=== PATIENT | female | born 1930 | race Caucasian/White ===

== ENCOUNTER 2018-09-23 08:53 | Emergency (ER) | payer MEDICARE, OTHER ==
--- OUTSIDE RECORDS SUMMARY | 2018-09-23 08:57 | XMS REPORT | Clinical Summary ---
:1930 Author Organization [facility] Address [address] [place] [address] Care Team Providers Name Role Phone Cesario Cabrera MD Primary Care Provider Allergies No Known Allergies Medications Medication Sig Dispensed Refills Start Date End Date Status metFORMIN Take 1,000 mg by 0 Active (GLUCOPHAGE) 1000 MG mouth 2 (two) times tablet daily with breakfast and dinner. docusate sodium Take 1 capsule (100 50 capsule 0 02/24/2017 Active (COLACE) 100 MG mg total) by mouth capsule 2 (two) times daily. traMADol (ULTRAM) 50 Take 2 tablets (100 30 tablet 0 02/24/2017 Active mg tablet mg total) by mouth every 6 (six) hours as needed for Pain. Max Daily Amount: 400 mg Active Problems Problem Noted Date Kidney stone 02/24/2017 Social History Tobacco Use Types Packs/Day Years Used Date Never Smoker Smokeless Tobacco: Never Used Alcohol Use Drinks/Week oz/Week Comments No Sex Assigned at Date Recorded Not on file Job Start Date Occupation Industry Not on file Not on file Not on file Travel History Travel Start Travel End No recent travel history available. Last Filed Vital Signs Not on file Plan of Treatment Not on file Results Not on fileafter 09/22/2017 Insurance Payer Benefit Plan / Group Subscriber ID Type Phone Address CARE IMPROVEMENT MEDICARE MGD CARE IMPROVEMENT PLUS xxxxxxxxx CARE Advance Directives For more information, please contact:[address] [phone] Code Status Date Activated Date Inactivated Comments Full Code 02/24/2017 1:24 AM 02/25/2017 11:42 AM This code status was determined by: Patient
--- OUTSIDE RECORDS SUMMARY | 2018-09-23 08:57 | XMS REPORT ---
:1930 Author Organization [facility] Address [facility] João Ortiz [address] [place] [address] Care Team Providers Name Role Phone ROBEL DUNCAN Unavailable Unavailable Problems This patient has no known problems. Allergies, Adverse Reactions, Alerts This patient has no known allergies or adverse reactions. Medications This patient has no known medications. Results Test Description Test Time Test Comments Text Results Atomic Results Result Comments URINE CULTURE 2017-02-26 09:24:00 Test Item Value Reference Range Comments CULTURE (BEAKER) (test KLEBSIELLA PNEUMONIAE SSP >100,000 col/mL geib=6205) PNEUMONIAE Klebsiella pneumoniae ssp pneumoniae Amikacin (test code=1) Ampicillin + Sulbactam (test code=6) Aztreonam (test code=32) Cefepime (test code=51) Cefoxitin (test code=68) Ceftazidime (test code=27) Ceftriaxone (test code=52) Ertapenem (test code=38) Gentamicin (test code=18) Levofloxacin (test code=22) Meropenem (test code=34) Nitrofurantoin (test code=23) Piperacillin + Tazobactam (test code=29) Tetracycline (test code=2) Tobramycin (test code=25) Trimethoprim + Sulfamethoxazole (test code=47) POCT-GLUCOSE [id number] 07:42:00 Test Item Value Reference Range Comments POC-GLUCOSE METER (BEAKER) 134 mg/dL 70-110 TESTED AT [facility] [address] [facility] (test nixj=1043) [facility] [address] POCT-GLUCOSE [id number] 17:57:00 Test Item Value Reference Range Comments POC-GLUCOSE METER (BEAKER) 130 mg/dL 70-110 TESTED AT [facility] [address] [facility] (test bain=4522) [facility] [address] POCT-GLUCOSE [id number] 11:28:00 Test Item Value Reference Range Comments POC-GLUCOSE METER (BEAKER) 173 mg/dL 70-110 TESTED AT [facility] [address] (test ogva=7450) [facility] [address] BASIC METABOLIC [id number] 10:58:00 Test Item Value Reference Range Comments SODIUM (BEAKER) (test 139 meq/L 136-145 nntt=523) POTASSIUM (BEAKER) (test 3.5 meq/L 3.5-5.1 zkxj=392) CHLORIDE (BEAKER) (test 108 meq/L 98-107 wkxb=946) CO2 (BEAKER) (test 20 meq/L 22-29 fhcu=802) BLOOD UREA NITROGEN 16 mg/dL 7-21 (BEAKER) (test nuxr=144) CREATININE (BEAKER) (test 0.86 mg/dL 0.57-1.25 vmwy=180) GLUCOSE RANDOM (BEAKER) 243 mg/dL 70-105 (test kpmv=632) CALCIUM (BEAKER) (test 8.4 mg/dL 8.4-10.2 drsj=309) EGFR (BEAKER) (test 63 mL/min/1.73 sq m ESTIMATED GFR IS NOT zzdt=3510) ACCURATE CREATININE CLEARANCE IN PREDICTING GLOMERULAR FILTRATION RATE. ESTIMATED GFR IS NOT APPLICABLE FOR DIALYSIS PATIENTS. CBC W/PLT COUNT & AUTO [id number] 10:21:00 Test Item Value Reference Range Comments WHITE BLOOD CELL COUNT (BEAKER) (test lnup=844) 7.2 K/ L 3.5-10.5 RED BLOOD CELL COUNT (BEAKER) (test tnkq=607) 3.89 M/ L 3.93-5.22 HEMOGLOBIN (BEAKER) (test gpck=233) 12.0 GM/DL 11.2-15.7 HEMATOCRIT (BEAKER) (test bguu=884) 35.7 % 34.1-44.9 MEAN CORPUSCULAR VOLUME (BEAKER) (test telc=147) 91.8 fL 79.4-94.8 MEAN CORPUSCULAR HEMOGLOBIN (BEAKER) (test 30.8 pg 25.6-32.2 vxca=759) MEAN CORPUSCULAR HEMOGLOBIN CONC (BEAKER) (test 33.6 GM/DL 32.2-35.5 aekv=034) RED CELL DISTRIBUTION WIDTH (BEAKER) (test 13.2 % 11.7-14.4 lkdh=280) PLATELET COUNT (BEAKER) (test woit=115) 219 K/CU MM 150-450 MEAN PLATELET VOLUME (BEAKER) (test jczo=452) 9.5 fL 9.4-12.3 NUCLEATED RED BLOOD CELLS (BEAKER) (test 0 /100 WBC 0-0 zmvn=078) NEUTROPHILS RELATIVE PERCENT (BEAKER) (test 55 % vmlr=292) LYMPHOCYTES RELATIVE PERCENT (BEAKER) (test 37 % mjfd=519) MONOCYTES RELATIVE PERCENT (BEAKER) (test 6 % inkd=124) EOSINOPHILS RELATIVE PERCENT (BEAKER) (test 1 % gyug=061) BASOPHILS RELATIVE PERCENT (BEAKER) (test 1 % grpk=786) NEUTROPHILS ABSOLUTE COUNT (BEAKER) (test 3.95 K/ L 1.56-6.13 xbay=695) LYMPHOCYTES ABSOLUTE COUNT (BEAKER) (test 2.69 K/ L 1.18-3.74 uhrl=877) MONOCYTES ABSOLUTE COUNT (BEAKER) (test 0.46 K/ L 0.24-0.36 zfec=106) EOSINOPHILS ABSOLUTE COUNT (BEAKER) (test 0.06 K/ L 0.04-0.36 uxty=207) BASOPHILS ABSOLUTE COUNT (BEAKER) (test 0.04 K/ L 0.01-0.08 zjty=591) IMMATURE GRANULOCYTES-RELATIVE PERCENT (BEAKER) 0 % 0-1 (test jijp=1888) POCT-GLUCOSE [id number] 02:06:00 Test Item Value Reference Range Comments POC-GLUCOSE METER (BEAKER) 166 mg/dL 70-110 TESTED AT [facility] [address] (test agvp=2536) [facility] [address]
--- OUTSIDE RECORDS SUMMARY | 2018-09-23 08:57 | XMS REPORT | Clinical Summary ---
:1930 Author Organization [facility] Address [address] [place] [address] Care Team Providers Name Role Phone Cole Boo MD Primary Care Provider Allergies Active Allergy Reactions Severity Noted Date Comments Metformin GI Intolerance 04/03/2018 Medications Medication Sig Dispensed Refills Start Date End Date Status aspirin (ECOTRIN) Take 81 mg by 0 Active 81 MG enteric mouth daily. coated tablet VITAMIN B COMPLEX Take by mouth. 0 Active (B COMPLEX ORAL) CHOLECALCIFEROL, Take 50 mg by 0 Active VITAMIN D3, mouth. (VITAMIN D3 ORAL) ASCORBIC ACID Take by mouth. 0 Active (C-1000 ORAL) biotin 5,000 mcg Take by mouth. 0 Active tablet,disintegrat ing vortioxetine Take by mouth. 0 Active (TRINTELLIX) 10 mg tablet montelukast Take 1 tablet 90 tablet 1 04/03/2018 Active (SINGULAIR) 10 mg (10 mg total) 9 tablet by mouth nightly. glimepiride TAKE 1 TABLET 90 tablet 1 05/22/2018 Active (AMARYL) 2 MG BY MOUTH DAILY tablet BEFORE BREAKFAST losartan (COZAAR) Take 0.5 90 tablet 0 05/29/2018 Active 25 MG tablets (12.5 9 tabletIndications: mg total) by Essential mouth daily. hypertension omeprazole TAKE 1 CAPSULE 180 capsule 0 07/10/2018 Active (PriLOSEC) 20 MG BY MOUTH TWO capsule TIMES DAILY nystatin APPLY TOPICALLY 60 g 0 07/10/2018 Active (MYCOSTATIN) 4 (FOUR) TIMES 0 100,000 unit/gram A DAY. powder atorvastatin TAKE 1 TABLET 90 tablet 0 07/10/2018 Active (LIPITOR) 10 MG BY MOUTH DAILY tablet diclofenac Apply topically 100 g 1 07/29/2018 Active (VOLTAREN) 1 % 4 (four) times gelIndications: a day. Osteoporosis screening glimepiride 0 11/04/2015 Discontinued (AMARYL) 2 MG 8 tablet metFORMIN Take 1,000 mg 0 Discontinued (GLUCOPHAGE) 1,000 by mouth. 8 mg tablet losartan (COZAAR) Take 0.5 30 tablet 1 08/28/2017 Discontinued 25 MG tablets (12.5 8 tabletIndications: mg total) by Essential mouth daily. hypertension atorvastatin Take 1 tablet 90 tablet 1 08/28/2017 Discontinued (LIPITOR) 10 MG (10 mg total) 8 tablet by mouth daily. omeprazole Take 1 capsule 180 capsule 1 08/28/2017 Discontinued (PriLOSEC) 20 MG (20 mg total) 8 capsule by mouth 2 (two) times a day. lisinopril Take 5 mg by 0 Discontinued (PRINIVIL,ZESTRIL) mouth daily. 8 5 mg tablet glimepiride Take 1 tablet 90 tablet 1 10/02/2017 Discontinued (AMARYL) 2 MG (2 mg total) by 8 tablet mouth daily before breakfast. atorvastatin Take 1 tablet 90 tablet 1 10/02/2017 Discontinued (LIPITOR) 10 MG (10 mg total) 8 tablet by mouth daily. losartan (COZAAR) Take 0.5 90 tablet 0 10/21/2017 Discontinued 25 MG tablets (12.5 8 tabletIndications: mg total) by Essential mouth daily. hypertension benzonatate Take 1 capsule 20 capsule 0 10/24/2017 (TESSALON PERLES) (100 mg total) 8 100 MG capsule by mouth 3 (three) times a day as needed for cough for up to 30 days. predniSONE Take 1 tablet 6 tablet 0 10/24/2017 (DELTASONE) 10 mg (10 mg total) 8 tablet by mouth daily for 6 days. losartan (COZAAR) Take 0.5 90 tablet 0 11/26/2017 Discontinued 25 MG tablets (12.5 8 tabletIndications: mg total) by Essential mouth daily. hypertension omeprazole Take 1 capsule 180 capsule 1 11/26/2017 Discontinued (PriLOSEC) 20 MG (20 mg total) 9 capsule by mouth 2 (two) times a day. glimepiride Take 1 tablet 90 tablet 1 11/26/2017 Discontinued (AMARYL) 2 MG (2 mg total) by 8 tablet mouth daily before breakfast. atorvastatin Take 1 tablet 90 tablet 1 11/26/2017 Discontinued (LIPITOR) 10 MG (10 mg total) 9 tablet by mouth daily. diclofenac Apply topically 100 g 1 01/02/2018 Discontinued (VOLTAREN) 1 % gel 4 (four) times 8 a day. losartan (COZAAR) Take 0.5 90 tablet 0 01/23/2018 Discontinued 25 MG tablets (12.5 8 tabletIndications: mg total) by Essential mouth daily. hypertension diclofenac Apply topically 100 g 1 04/03/2018 Discontinued (VOLTAREN) 1 % 4 (four) times 8 gelIndications: a day. Osteoporosis screening nystatin Apply topically 60 g 0 04/03/2018 Discontinued (MYCOSTATIN) 4 (four) times 9 100,000 unit/gram a day. powder gabapentin Take 1 capsule 180 capsule 1 04/03/2018 (NEURONTIN) 100 mg (100 mg total) 8 capsule by mouth 2 (two) times a day for 90 days. diclofenac Apply topically 100 g 1 06/10/2018 Discontinued (VOLTAREN) 1 % 4 (four) times 9 gelIndications: a day. Osteoporosis screening cefdinir (OMNICEF) Take 1 capsule 14 capsule 0 07/29/2018 300 MG capsule (300 mg total) 9 by mouth 2 (two) times a day for 7 days. Active Problems Problem Noted Date History of breast cancer 08/28/2017 Encounters Date Type Specialty Care Team Description 07/29/2018 Office Visit Family Medicine Cole Boo MD Osteoporosis screening 07/09/2018 Refill Cole Pizarro MD 06/10/2018 Refill Family Heidy Sanchez MA Osteoporosis screening 05/27/2018 Refill Family Heidy Sanchez MA Essential hypertension 05/21/2018 Refill Family Cole Cortes MD 05/04/2018 Office Visit Family Cole Cortes MD Essential hypertension (Primary Dx); Hyperlipidemia, unspecified hyperlipidemia type; Type 2 diabetes mellitus without complication, without long-term current use of insulin (HCC); Fibromyalgia; Chronic cough; Benign paroxysmal positional vertigo of left ear 04/22/2018 Office Visit Orthopedic Surgery Enrrique Maradiaga, Lumbar pain (Primary MD Dx) 04/17/2018 Telephone Family Medicine Albania Ramirez MA 04/17/2018 Orders Only Orthopedic Surgery Quincy Bonner, Pain of left hip joint Syl (Primary Dx) 04/16/2018 Telephone Cole Piazrro MD 04/16/2018 Nurse Triage Access Deepali Conn RN 04/06/2018 Telephone Family Albania Curtis MA 04/03/2018 Office Visit Cole Pizarro MD Osteoporosis screening (Primary Dx); Essential hypertension; OA (osteoarthritis) of finger, unspecified laterality; Hyperlipidemia, unspecified hyperlipidemia type; Type 2 diabetes mellitus without complication, without long-term current use of insulin; Fibromyalgia; Chronic cough 02/02/2018 Telephone Cole Pizarro MD 01/23/2018 Refill Cole Pizarro MD Essential hypertension 01/02/2018 Office Visit Cole Pizarro MD Essential hypertension (Primary Dx); OA (osteoarthritis) of finger, unspecified laterality; Hyperlipidemia, unspecified hyperlipidemia type; Type 2 diabetes mellitus without complication, without long-term current use of insulin; Fall, initial encounter; Chronic pain of right ankle 12/25/2017 Telephone Family Albania Curtis MA 12/19/2017 Telephone Family Cole Cortes MD 10/24/2017 Office Visit Family Cole Cortes MD Reactive airway disease without complication, unspecified asthma severity, unspecified whether persistent (Primary Dx) 10/21/2017 Refill Cole Pizarro MD Essential hypertension 10/02/2017 Office Visit Cole Pizarro MD Diabetes mellitus screening (Primary Dx); Hyperlipidemia, unspecified hyperlipidemia type; Reflux esophagitis; Essential hypertension; OA (osteoarthritis) of finger, unspecified laterality; Urinary incontinence, unspecified type after 09/22/2017 Social History Tobacco Use Types Packs/Day Years Used Date Never Smoker Smokeless Tobacco: Never Used Alcohol Use Drinks/Week oz/Week Comments Yes seasonal holidays Sex Assigned at Date Recorded Not on file Job Start Date Occupation Industry Not on file Not on file Not on file Travel History Travel Start Travel End No recent travel history available. Last Filed Vital Signs Vital Sign Reading Time Taken Blood Pressure 133/74 07/29/2018 9:34 AM ELECTRICAL/INSTRUMENT TECHNICIAN Pulse 77 07/29/2018 9:34 AM ELECTRICAL/INSTRUMENT TECHNICIAN Temperature 36.4 C (97.6 F) 07/29/2018 9:34 AM ELECTRICAL/INSTRUMENT TECHNICIAN Respiratory Rate - - Oxygen Saturation 96% 01/02/2018 8:02 AM CDT Inhaled Oxygen Concentration - - Weight 65.9 kg (145 lb 3.2 oz) 07/29/2018 9:34 AM ELECTRICAL/INSTRUMENT TECHNICIAN Height 162.6 cm (5' 4") 07/29/2018 9:34 AM ELECTRICAL/INSTRUMENT TECHNICIAN Body Mass Index 24.92 07/29/2018 9:34 AM ELECTRICAL/INSTRUMENT TECHNICIAN Plan of Treatment Date Type Specialty Care Team Description 09/25/2018 Office Visit Family Medicine Cole Boo MD [address] [place] [address] [phone] 10/27/2018 Office Visit Family Cole Cortes MD [facility] [address] [address] [phone] Health Maintenance Due Date Last Done Comments DIABETIC RETINAL EYE EXAM 1930 DIABETIC FOOT EXAM 1940 SHINGLES VACCINES (#1) 1980 65+ PNEUMOCOCCAL VACCINE (1 of 2 - 1995 PCV13) PNEUMOCOCCAL POLYSACCHARIDE 1995 VACCINE AGE 65 AND OVER INFLUENZA VACCINE 05/06/2019 04/06/2013 Postponed from 02/04/2018 (Patient Refused) Procedures Procedure Name Priority Date/Time Associated Diagnosis Comments XR LUMBAR SPINE 2 OR Routine 04/22/2018 9:08 Lumbar pain Results for this 3 VW AM CDT procedure are in the results section. XR HIP 2-3 VIEWS LEFT Routine 04/22/2018 8:03 Pain of left hip joint Results for this AM CDT procedure are in the results section. LIPID PANEL Routine 04/03/2018 9:02 Hyperlipidemia, Results for this AM CDT unspecified procedure are in hyperlipidemia type the results section. CBC WITH PLATELET AND Routine 04/03/2018 9:02 Osteoporosis screening Results for this DIFFERENTIAL AM CDT Essential hypertension procedure are in OA (osteoarthritis) of the results finger, unspecified section. laterality Hyperlipidemia, unspecified hyperlipidemia type Type 2 diabetes mellitus without complication, without long-term current use of insulin HEMOGLOBIN A1C Routine 04/03/2018 9:02 Type 2 diabetes Results for this AM CDT mellitus without procedure are in complication, without the results long-term current use section. of insulin COMPREHENSIVE Routine 04/03/2018 9:02 Hyperlipidemia, Results for this METABOLIC PANEL AM CDT unspecified procedure are in hyperlipidemia type the results Type 2 diabetes section. mellitus without complication, without long-term current use of insulin after 09/22/2017 Results XR Lumbar Spine 2 Or 3 Vw (04/22/2018 9:08 AM CDT) Narrative Performed At Spine films demonstrate degenerative changes throughout the lumbar spine [facility] with degenerative disc disease and a grade 1 spine the L3-4. 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 Excellent episcopalian of leg length and offset. Performing Organization Address [facility] Phone Number [facility] [address] [place] [address] CBC with platelet and differential (04/03/2018 9:02 AM CDT) WBC 6.3 3.4 - 10.8 x10E3/uL [facility] RBC 4.53 3.77 - 5.28 x10E6/uL [facility] HGB 13.5 11.1 - 15.9 g/dL [facility] HCT 42.0 34.0 - 46.6 % [facility] MCV 93 79 - 97 fL [facility] MCH 29.8 26.6 - 33.0 pg [facility] MCHC 32.1 31.5 - 35.7 g/dL [facility] RDW 14.4 12.3 - 15.4 % [facility] Platelet count 246 150 - 379 x10E3/uL [facility] Neutrophils 51 Not Estab. % [facility] Lymphocytes 40 Not Estab. % [facility] Monocytes 7 Not Estab. % [facility] Eosinophils 1 Not Estab. % [facility] Basophils 1 Not Estab. % [facility] Neutrophils, absolute 3.2 1.4 - 7.0 x10E3/uL [facility] Lymphocytes, absolute 2.5 0.7 - 3.1 x10E3/uL [facility] Monocytes, absolute 0.4 0.1 - 0.9 x10E3/uL [facility] Eosinophils, absolute 0.1 0.0 - 0.4 x10E3/uL [facility] Basophils, absolute 0.0 0.0 - 0.2 x10E3/uL [facility] Immature granulocytes 0 Not Estab. % [facility] Immature grans (abs) 0.0 0.0 - 0.1 x10E3/uL [facility] Specimen Blood Narrative Performed At Performed at:[address] [place], [place] [id number] Editing Intern: Marcelo Rush MD, Phone:[phone] Performing Organization Address [facility] Phone Number [facility] Hemoglobin A1c (04/03/2018 9:02 AM CDT) Hemoglobin A1C 6.9 (H) 4.8 - 5.6 % [facility] Comment: Prediabetes: 5.7 - 6.4 Diabetes: >6.4 Glycemic control for adults with diabetes: <7.0 Specimen Blood Narrative Performed At Performed at: [id number] Editing Intern: Marcelo Rush MD, Phone:[phone] Performing Organization Address [facility] Phone Number [facility] Lipid panel (04/03/2018 9:02 AM CDT) Cholesterol 142 100 - 199 mg/dL [facility] Triglycerides 134 0 - 149 mg/dL [facility] HDL cholesterol 53 >39 mg/dL [facility] VLDL cholesterol fercho 27 5 - 40 mg/dL [facility] LDL cholesterol calculated 62 0 - 99 mg/dL [facility] Non-HDL cholesterol 89 0 - 129 mg/dL [facility] Specimen Blood Narrative Performed At Performed at:[address] [place], [place] [address], [place], [id number] Editing Intern: Marcelo Rush MD, Phone:[phone] Performing Organization Address [facility] Phone Number [facility] Comprehensive metabolic panel (04/03/2018 9:02 AM CDT) Glucose 127 (H) 65 - 99 mg/dL [facility] BUN, whole blood 20 8 - 27 mg/dL [facility] Creatinine 0.75 0.57 - 1.00 mg/dL [facility] EGFR Non-Afr. Sudanese 72 >59 mL/min/1.73 [facility] EGFR 83 >59 mL/min/1.73 [facility] BUN/creatinine ratio 27 12 - 28 [facility] Sodium 143 134 - 144 mmol/L [facility] Potassium 4.3 3.5 - 5.2 mmol/L [facility] Chloride 104 96 - 106 mmol/L [facility] CO2 20 20 - 29 mmol/L [facility] Calcium 9.4 8.7 - 10.3 mg/dL [facility] Protein 6.9 6.0 - 8.5 g/dL [facility] Albumin, S 4.3 3.5 - 4.7 g/dL [facility] Globulin, total 2.6 1.5 - 4.5 g/dL [facility] Albumin/globulin ratio 1.7 1.2 - 2.2 [facility] Total bilirubin 0.4 0.0 - 1.2 mg/dL [facility] Alkaline phosphatase 77 39 - 117 IU/L [facility] AST 19 0 - 40 IU/L [facility] ALT 19 0 - 32 IU/L [facility] Specimen Blood Narrative Performed At Performed at: - [facility] [place] [address] [place], [id number] Editing Intern: Marcelo Rush MD, Phone:[phone] Performing Organization Address City/State/Zipcode Phone Number [facility] after 09/22/2017 Insurance Payer Benefit Plan / Group Subscriber ID Type Phone Address [facility] MEDICARE [facility] MEDICARE HMO/PPO xxxxxxxxx HMO Advance Directives Patient has advance care planning documents on file. For more information, please contact:Travis Stubbs[address] [place] [address]
[2018-09-23] MEDS ORDERED: TRAMADOL HCL 50 MG TAB ONE (10:11)
--- NOTE | 2018-09-23 11:04 | RAD REPORT ---
EXAM DESCRIPTION: RAD - Chest Single View - 09/23/2018 10:51 am CLINICAL HISTORY: RIB PAIN - RIGHT Chest pain. COMPARISON: CHEST PA AND LAT 2 VIEW dated 09/20/2013; CHEST PA AND LAT 2 VIEW dated 04/15/2013; CHEST PA AND LAT 2 VIEW dated 12/06/2011; CHEST PA AND LAT 2 VIEW dated 08/23/2008; Ribs Right dated 09/24/19 19 FINDINGS: Portable technique limits examination quality. 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 The heart is normal in size. Degenerative marva nges are present right shoulder. IMPRESSION: COPD.
--- NOTE | 2018-09-23 11:05 | RAD REPORT ---
EXAM DESCRIPTION: RAD - Ribs Right - 09/23/2018 10:51 am CLINICAL HISTORY: upper back pain Fall, pain COMPARISON: Chest Single View dated 09/23/2018 FINDINGS: The bones appear demineralized. No acute fracture is identified.
--- NOTE | 2018-09-23 11:22 | EDPHYS ---
Physician Documentation [facility] Name: Lucinda Portillo Age: 88 yrs Sex: Female : 1930 Arrival Date: 09/23/2018 Time: 08:58 Bed 17 Private MD: ED Physician Gregory Garcia HPI: 09/23 10:25 This 88 yrs old Female presents to ER via Ambulatory with complaints of Back pm1 Pain. 10:25 The patient presents with pain that is acute. The symptoms are located in the right pm1 subscapular area. Onset: The symptoms/episode began/occurred September 07, 2018. The pain does not radiate. Associated signs and symptoms: Pertinent negatives: chest pain, fever, shortness of breath. The problem was sustained during a fall, while standing. Modifying factors: The patient symptoms are alleviated by nothing, the patient symptoms are aggravated by deep breathing. Severity of symptoms: in the emergency department the symptoms are unchanged. The patient has not experienced similar symptoms in the past. Was seen at [facility] ER on September 07, 2018 when she fell on her back. X-rays performed and told that she does not have a fracture. Patient reports that her back still hurts and she believes that she might have a rib fracture. No fever, chest pain, or shortness of breath . Historical: - Allergies: 09:23 No Known Allergies; ss - PMHx: 09:23 cholesterol; Diabetes - NIDDM; Kidney stones; ss - PSHx: 09:23 Mastectomy, Left; Mastectomy, Right; Doble hip join replecement; ss - Immunization history:: Adult Immunizations up to date. - Social history:: Smoking status: Patient/guardian denies using tobacco. - Ebola Screening: : Patient denies exposure to infectious person Patient denies travel to an Ebola-affected area in the 21 days before illness onset. ROS: 10:25 Constitutional: Negative for fever, chills, and weight loss, Eyes: Negative for injury, pm1 pain, redness, and discharge, ENT: Negative for injury, pain, and discharge, Neck: Negative for injury, pain, and swelling, Cardiovascular: Negative for chest pain, palpitations, and edema, Respiratory: Negative for shortness of breath, cough, wheezing, and pleuritic chest pain, Abdomen/GI: Negative for abdominal pain, nausea, vomiting, diarrhea, and constipation. 10:25 : Negative for injury, bleeding, discharge, and swelling, MS/Extremity: Negative for injury and deformity, Skin: Negative for injury, rash, and discoloration, Neuro: Negative for headache, weakness, numbness, tingling, and seizure. 10:25 Back: Positive for of the right subscapular area, pain. Exam: 10:25 Constitutional: This is a well developed, well nourished patient who is awake, alert, pm1 and in no acute distress. Head/Face: Normocephalic, atraumatic. Eyes: Pupils equal round and reactive to light, extra-ocular motions intact. Lids and lashes normal. Conjunctiva and sclera are non-icteric and not injected. Cornea within normal limits. Periorbital areas with no swelling, redness, or edema. ENT: Nares patent. No nasal discharge, no septal abnormalities noted. Tympanic membranes are normal and external auditory canals are clear. Oropharynx with no redness, swelling, or masses, exudates, or evidence of obstruction, uvula midline. Mucous membranes moist. Neck: Trachea midline, no thyromegaly or masses palpated, and no cervical lymphadenopathy. Supple, full range of motion without nuchal rigidity, or vertebral point tenderness. No Meningismus. Chest/axilla: Normal chest wall appearance and motion. Nontender with no deformity. No lesions are appreciated. Cardiovascular: Regular rate and rhythm with a normal S1 and S2. No gallops, murmurs, or rubs. Normal PMI, no JVD. No pulse deficits. Respiratory: Lungs have equal breath sounds bilaterally, clear to auscultation and percussion. No rales, rhonchi or wheezes noted. No increased work of breathing, no retractions or nasal flaring. Abdomen/GI: Soft, non-tender, with normal bowel sounds. No distension or tympany. No guarding or rebound. No evidence of tenderness throughout. 10:25 Skin: Warm, dry with normal turgor. Normal color with no rashes, no lesions, and no evidence of cellulitis. MS/ Extremity: Pulses equal, no cyanosis. Neurovascular intact. Full, normal range of motion. 10:25 Back: pain, that is mild, of the focal point right subscapular area, normal spinal alignment noted, vertebral tenderness, is not appreciated. 10:25 Neuro: Orientation: is normal, Mentation: is normal, Motor: is normal, Sensation: is normal, no obvious gross deficits. Vital Signs: 09: BP 158 / 76; Pulse 66; Resp 18; Temp 98.4(TE); Pulse Ox 100% on R/A; Weight 63.5 kg; ss Height 5 ft. 4 in. (162.56 cm); Pain 10; 09:23 Body Mass Index 24.03 (63.50 kg, 162.56 cm) ss MDM: 09:12 Patient medically screened. pm1 11:21 Data reviewed: vital signs. Data interpreted: Pulse oximetry: on room air is 100 %. pm1 Interpretation: normal. Counseling: I had a detailed discussion with the patient and/or guardian regarding: the historical points, exam findings, and any diagnostic results supporting the discharge/admit diagnosis, radiology results, the need for outpatient follow up, to return to the emergency department if symptoms worsen or persist or if there are any questions or concerns that arise at home. 09/23 09:23 Order name: Chest Single View XRAY; Complete Time: 11:14 pm1 09/23 09:23 Order name: Ribs Right XRAY; Complete Time: 11:14 pm1 Administered Medications: 10:30 Drug: traMADol 50 mg Route: PO; ss 12:09 Follow up: Response: No adverse reaction; Pain is decreased ss Disposition: 09/24 07:59 Co-signature as Attending Physician, Gregory Garcia MD I agree with the assessment and marva plan of care. Disposition: 09/23/18 11:21 Discharged to Home. Impression: Contusion of right back wall of thorax. - Condition is Stable. - Discharge Instructions: Rib Contusion. - Prescriptions for Tramadol 50 mg Oral Tablet - take 1 tablet by ORAL route every 8 hours as needed; 12 tablet. - Medication Reconciliation Form, Thank You Letter, Prescription Opioid Use form. - Follow up: Emergency Department; When: As needed; Reason: Worsening of condition. Follow up: Private Physician; When: 2 - 3 days; Reason: Recheck today's complaints, Continuance of care, Re-evaluation by your physician. - Problem is new. - Symptoms have improved. Signatures: Dispatcher [employer] Gregory Fritz MD MD cha Williams, Irene, RN RN iw Smirch, Shelby, RN RN ss Dylan Hall, BAND AID MACHINE OPERATOR BAND AID MACHINE OPERATOR pm1 Corrections: (The following items were deleted from the chart) 09/23 12:07 11:21 09/23/2018 11:21 Discharged to Home. Impression: Contusion of right back wall of iw thorax. Condition is Stable. Forms are Medication Reconciliation Form, Thank You Letter, Antibiotic Education, Prescription Opioid Use. Follow up: Emergency Department; When: As needed; Reason: Worsening of condition. Follow up: Private Physician; When: 2 - 3 days; Reason: Recheck today's complaints, Continuance of care, Re-evaluation by your physician. Problem is new. Symptoms have improved. pm1 12:07 12:07 09/23/2018 11:21 Discharged to Home. Impression: Contusion of right back wall of iw thorax. Condition is Stable. Discharge Instructions: Rib Contusion. Prescriptions for Tramadol 50 mg Oral Tablet - take 1 tablet by ORAL route every 8 hours as needed; 12 tablet. and Forms are Medication Reconciliation Form, Thank You Letter, Prescription Opioid Use. Follow up: Emergency Department; When: As needed; Reason: Worsening of condition. Follow up: Private Physician; When: 2 - 3 days; Reason: Recheck today's complaints, Continuance of care, Re-evaluation by your physician. Problem is new. Symptoms have improved. iw
--- NOTE | 2018-09-23 11:22 | ER ---
Nurse's Notes [facility] Name: Lucinda Portillo Age: 88 yrs Sex: Female : 1930 Arrival Date: 09/23/2018 Time: 08:58 Bed 17 Private MD: Diagnosis: Contusion of right back wall of thorax Presentation: 09/23 09:20 Presenting complaint: Patient states: R upper back pain after a fall on 09/07/18. Pt ss reports she was seen at [facility] and had XRAYs that were negative, but she still believes she may have a fracture. Transition of care: patient was not received from another setting of care. Onset of symptoms was September 07, 2018. Risk Assessment: Do you want to hurt yourself or someone else? Patient reports no desire to harm self or others. Initial Sepsis Screen: Does the patient meet any 2 criteria? No. Patient's initial sepsis screen is negative. Does the patient have a suspected source of infection? No. Patient's initial sepsis screen is negative. Care prior to arrival: None. 09:20 Method Of Arrival: Ambulatory ss 09:20 Acuity: MOO 4 ss Historical: - Allergies: 09:23 No Known Allergies; ss - PMHx: 09:23 cholesterol; Diabetes - NIDDM; Kidney stones; ss - PSHx: 09:23 Mastectomy, Left; Mastectomy, Right; Doble hip join replecement; ss - Immunization history:: Adult Immunizations up to date. - Social history:: Smoking status: Patient/guardian denies using tobacco. - Ebola Screening: : Patient denies exposure to infectious person Patient denies travel to an Ebola-affected area in the 21 days before illness onset. Screenin:24 Abuse screen: Denies threats or abuse. Denies injuries from another. Nutritional ss screening: No deficits noted. Tuberculosis screening: Never had TB. Fall Risk Fall in past 12 months (25 points). No secondary diagnosis (0 pts). IV access (20 points). Ambulatory Aid- None/Bed Rest/Nurse Assist (0 pts). Gait- Normal/Bed Rest/Wheelchair (0 pts) Mental Status- Oriented to own ability (0 pts). Assessment: 09:24 General: Appears in no apparent distress. comfortable, Behavior is calm, cooperative, ss Denies fever, feeling ill, fatigue, chills. Pain: Complains of pain in right subscapular area Pain currently is 10 out of 10 on a pain scale. Quality of pain is described as aching, tender, Pain began September, post fall from standing Is continuous, Aggravated by repositioning. Neuro: Level of Consciousness is awake, alert, obeys commands, Oriented to person, place, time, situation. Cardiovascular: Capillary refill < 3 seconds is brisk in bilateral fingers. Respiratory: Reports pain with cough pain with movement pain with respiration Airway is patent Respiratory effort is even, unlabored, Respiratory pattern is regular, symmetrical, Breath sounds are clear bilaterally. Denies cough, shortness of breath labored breathing. GI: No signs and/or symptoms were reported involving the gastrointestinal system. : No signs and/or symptoms were reported regarding the genitourinary system. EENT: Nares are clear Oral mucosa is moist. Throat is clear. Derm: Skin is intact, is healthy with good turgor, Skin is dry, Skin is pink, warm \T\ dry. normal. Derm: Musculoskeletal: Circulation, motion, and sensation intact. Capillary refill < 3 seconds, is brisk, in bilateral fingers. Range of motion: intact in all extremities. Musculoskeletal: 11:50 Reassessment: Patient appears in no apparent distress at this time. Patient and/or ss family updated on plan of care and expected duration. Pain level reassessed. Patient is alert, oriented x 3, equal unlabored respirations, skin warm/dry/pink. Patient states feeling better. Vital Signs: 09:23 BP 158 / 76; Pulse 66; Resp 18; Temp 98.4(TE); Pulse Ox 100% on R/A; Weight 63.5 kg; ss Height 5 ft. 4 in. (162.56 cm); Pain 10/10; 09:23 Body Mass Index 24.03 (63.50 kg, 162.56 cm) ED Course: 08:58 Patient arrived in ED. mr 09:12 Dylan Hall NP is PHCP. pm1 09:12 Gregory Garcia MD is Attending Physician. pm1 09:22 Triage completed. ss 09:23 Arm band placed on right wrist. ss 09:24 Patient has correct armband on for positive identification. Bed in low position. Call ss light in reach. 10:26 Warm blanket given. Pillow given. Diet: Patient given snack. Pulse ox on. NIBP on. mh5 10:30 Jaqueline Lynch, RN is Primary Nurse. ss 10:50 X-ray completed. Portable x-ray completed in exam room. Patient tolerated procedure jb2 well. 10:51 Chest Single View XRAY In Process Unspecified. EDMS 10:52 Ribs Right XRAY In Process Unspecified. EDMS 11:50 No provider procedures requiring assistance completed. Patient did not have IV access ss during this emergency room visit. Administered Medications: 10:30 Drug: traMADol 50 mg Route: PO; ss 12:09 Follow up: Response: No adverse reaction; Pain is decreased ss Outcome: 11:21 Discharge ordered by MD. pm1 11:50 Discharged to home ambulatory. ss 11:50 Condition: good 11:50 Discharge instructions given to patient, Instructed on discharge instructions, follow up and referral plans. medication usage, Demonstrated understanding of instructions, follow-up care, medications, Prescriptions given X 1. 12:07 Patient left the ED. iw Signatures: Dispatcher [employer] EDRI Magdy Theresa DegrootZeke jb2 Kristina Tolentino, FATMATA AVILEZ Jaqueline Lynch, FATMATA RN ss Dylan Hall, SHAYNA HEEL SORTER pm1 Brenda Ramirez [facility]
== END 2018-09-23 12:07 | disposition home or self-care (01) ==
LOC: ER 08:53
DX: S20.221A Contusion of right back wall of thorax, initial encounter (principal); W19.XXXA Unspecified fall, initial encounter; Y93.9 Activity, unspecified; Y92.9 Unspecified place or not applicable; Z90.13 Acquired absence of bilateral breasts and nipples; E11.9 Type 2 diabetes mellitus without complications
CPT/HCPCS: 71045; 82962; 99284

== ENCOUNTER 2018-10-22 11:05 | Emergency (ER) | payer MEDICARE ==
--- OUTSIDE RECORDS SUMMARY | 2018-10-22 11:08 | XMS REPORT | Clinical Summary ---
:1930 Author Organization [facility] Address [address] [place] [id number] Care Team Providers Name Role Phone Cole [...] mouth. 0 Active (TRINTELLIX) 10 mg tablet glimepiride TAKE 1 TABLET 90 tablet 1 10/02/2018 Active (AMARYL) 2 MG BY MOUTH DAILY tablet BEFORE BREAKFAST NYAMYC 100,000 APPLY TOPICALLY 60 g 0 10/02/2018 Active unit/gram powder 4 TIMES DAILY atorvastatin TAKE 1 TABLET 90 tablet 0 10/02/2018 Active (LIPITOR) 10 MG BY MOUTH DAILY tablet gabapentin TAKE 1 CAPSULE 180 capsule 1 10/02/2018 Active (NEURONTIN) 100 mg BY MOUTH TWO capsule TIMES A DAY omeprazole TAKE 1 CAPSULE 180 capsule 0 10/02/2018 Active (PriLOSEC) 20 MG BY MOUTH TWO capsule TIMES DAILY montelukast TAKE 1 TABLET 90 tablet 1 10/02/2018 Active (SINGULAIR) 10 mg BY MOUTH tablet NIGHTLY losartan (COZAAR) TAKE ONE-HALF 45 tablet 2 10/02/2018 Active 25 MG TABLET BY tabletIndications: MOUTH DAILY Essential hypertension diclofenac Apply topically 100 g 1 10/16/2018 Active (VOLTAREN) 1 % 4 (four) times gelIndications: a day. Osteoporosis screening metFORMIN Take 1,000 mg 0 Discontinued (GLUCOPHAGE) [...] Take 1 capsule 180 capsule 1 04/03/2018 Discontinued (NEURONTIN) 100 mg (100 mg total) 9 capsule by mouth 2 (two) times a day for 90 days. montelukast Take 1 tablet 90 tablet 1 04/03/2018 Discontinued (SINGULAIR) 10 mg (10 mg total) 9 tablet by mouth nightly. glimepiride TAKE 1 TABLET 90 tablet 1 05/22/2018 Discontinued (AMARYL) 2 MG BY MOUTH DAILY 9 tablet BEFORE BREAKFAST losartan (COZAAR) Take 0.5 90 tablet 0 05/29/2018 Discontinued 25 MG tablets (12.5 9 tabletIndications: mg total) by Essential mouth daily. hypertension diclofenac Apply topically 100 g 1 06/10/2018 Discontinued (VOLTAREN) 1 % 4 (four) times 9 gelIndications: a day. Osteoporosis screening omeprazole TAKE 1 CAPSULE 180 capsule 0 07/10/2018 Discontinued (PriLOSEC) 20 MG BY MOUTH TWO 9 capsule TIMES DAILY nystatin APPLY TOPICALLY 60 g 0 07/10/2018 Discontinued (MYCOSTATIN) 4 (FOUR) TIMES 9 100,000 unit/gram A DAY. powder atorvastatin TAKE 1 TABLET 90 tablet 0 07/10/2018 Discontinued (LIPITOR) 10 MG BY MOUTH DAILY 9 tablet cefdinir (OMNICEF) Take 1 capsule 14 capsule 0 07/29/2018 300 MG capsule (300 mg total) 9 by mouth 2 (two) times a day for 7 days. diclofenac Apply topically 100 g 1 07/29/2018 Discontinued (VOLTAREN) 1 % 4 (four) times 9 gelIndications: a day. Osteoporosis screening Active Problems Problem Noted Date History of breast cancer 08/28/2017 Encounters Date Type Specialty Care Team Description 10/16/2018 Refill Family Medicine Heidy Jarrell MA Osteoporosis screening 10/01/2018 Refill [facility] Cole Cortes MD Essential hypertension 07/29/2018 Office Visit Cole Pizarro MD Osteoporosis screening 07/09/2018 RefCole Gray MD 06/10/2018 Refill Family Heidy Sanchez MA Osteoporosis screening 05/27/2018 Refill [facility] Heidy Sanchez MA Essential hypertension 05/21/2018 Refill Cole Pizarro MD 05/04/2018 Office Visit Cole Pizarro MD Essential hypertension (Primary Dx); Hyperlipidemia, unspecified hyperlipidemia type; Type 2 diabetes mellitus without complication, without long-term current use of insulin (HCC); Fibromyalgia; Chronic cough; Benign paroxysmal positional vertigo of left ear 04/22/2018 Office Visit Orthopedic Surgery Enrrique Maradiaga, Lumbar pain (Primary MD Dx) 04/17/2018 Telephone [facility] Albania Curtis MA 04/17/2018 Orders Only Orthopedic Surgery Quincy Bonner, Pain of left hip joint Syl (Primary Dx) 04/16/2018 Telephone [facility] Cole Cortes MD 04/16/2018 Nurse Triage Access Deepali Conn RN 04/06/2018 Telephone [facility] Albania Curtis MA 04/03/2018 Office Visit [facility] Cole Cortes MD Osteoporosis screening (Primary Dx); Essential hypertension; OA (osteoarthritis) of finger, unspecified laterality; Hyperlipidemia, unspecified hyperlipidemia type; Type 2 diabetes mellitus without complication, without long-term current use of insulin; Fibromyalgia; Chronic cough 02/02/2018 Telephone Cole Pizarro MD 01/23/2018 Refill Cole Pizarro MD Essential hypertension 01/02/2018 Office Visit Family Cole Cortes MD Essential hypertension (Primary Dx); OA (osteoarthritis) of finger, unspecified laterality; Hyperlipidemia, unspecified hyperlipidemia type; Type 2 diabetes mellitus without complication, without long-term current use of insulin; Fall, initial encounter; Chronic pain of right ankle 12/25/2017 Telephone Family Albania Curtis MA 12/19/2017 Telephone Family Cole Cortes MD 10/24/2017 Office Visit Cole Pizarro MD Reactive airway disease without complication, unspecified asthma severity, unspecified whether persistent (Primary Dx) 10/21/2017 Refill Cole Pizarro MD Essential hypertension after 10/21/2017 Social History Tobacco Use Types Packs/Day Years [...] Taken Blood Pressure 133/74 07/29/2018 9:34 AM TYPE SOLDERING MACHINE TENDER Pulse 77 07/29/2018 9:34 AM TYPE SOLDERING MACHINE TENDER Temperature 36.4 C (97.6 F) 07/29/2018 9:34 AM TYPE SOLDERING MACHINE TENDER Respiratory Rate - - Oxygen Saturation 96% 01/02/2018 8:02 AM CDT Inhaled Oxygen Concentration - - Weight 65.9 kg (145 lb 3.2 oz) 07/29/2018 9:34 AM TYPE SOLDERING MACHINE TENDER Height 162.6 cm (5' 4") 07/29/2018 9:34 AM TYPE SOLDERING MACHINE TENDER Body Mass Index 24.92 07/29/2018 9:34 AM TYPE SOLDERING MACHINE TENDER Plan of Treatment Date Type Specialty Care Team Description 10/27/2018 Office Visit Cole Pizarro MD [address] [place] [address] [phone] Health Maintenance Due Date Last Done Comments DIABETIC RETINAL EYE EXAM 1930 DIABETIC FOOT EXAM 1940 SHINGLES VACCINES (#1) 1980 65+ PNEUMOCOCCAL VACCINE (1 of 2 - 1995 PCV13) PNEUMOCOCCAL POLYSACCHARIDE 1995 VACCINE AGE 65 AND OVER INFLUENZA VACCINE 05/06/2019 04/06/2013 Postponed from 02/04/2019 (Patient Refused) Procedures Procedure Name Priority Date/Time [...] without long-term current use of insulin after 10/21/2017 Results XR Lumbar Spine 2 Or 3 Vw (04/22/2018 9:08 AM CDT) Narrative Performed At Spine films demonstrate degenerative changes throughout the lumbar spine [facility] with degenerative disc disease and a grade 1 spine the L3-4. 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 Excellent [facility] of leg length and offset. Performing Organization Address [facility] Phone Number [facility] [address] [place] [address] CBC with platelet and differential (04/03/2018 9:02 [...] Specimen Blood Narrative Performed At Performed at: [id number] Calender Inspector: Marcelo Rush MD, Phone:[phone] Performing Organization Address [facility] Phone Number [facility] Hemoglobin A1c (04/03/2018 9:02 AM CDT) Hemoglobin A1C 6.9 (H) 4.8 - 5.6 % [facility] Comment: Prediabetes: 5.7 - 6.4 Diabetes: >6.4 Glycemic control for adults with diabetes: <7.0 Specimen Blood Narrative Performed At [facility]formed at: [id number] Calender Inspector: Marcelo Rush MD, Phone:[phone] Performing Organization Address [facility] Phone Number [facility] Lipid panel (04/03/2018 9:02 AM CDT) Cholesterol 142 100 - 199 mg/dL [facility] Triglycerides 134 0 - 149 mg/dL [facility] HDL cholesterol 53 >39 mg/dL [facility] VLDL cholesterol fercho 27 5 - 40 mg/dL [facility] LDL cholesterol calculated 62 0 - 99 mg/dL [facility] Non-HDL cholesterol 89 0 - 129 mg/dL [facility] Specimen Blood Narrative Performed At Performed at: [facility] [address] [place], [id number] Calender Inspector: Marcelo Rush MD, Phone:[phone] Performing Organization Address [facility] Phone Number [facility] Comprehensive metabolic panel (04/03/2018 9:02 AM CDT) Glucose 127 (H) 65 - 99 mg/dL [facility] BUN, whole blood 20 8 - 27 mg/dL [facility] Creatinine 0.75 0.57 - 1.00 mg/dL [facility] EGFR Non-Afr. Togolese 72 >59 mL/min/1.73 [facility] EGFR 83 >59 [...] Specimen Blood Narrative Performed At Performed at: [facility] [address] [place], [id number] Calender Inspector: Marcelo Rush MD, Phone:[phone] Performing Organization Address City/State/Zipcode Phone Number [facility] after 10/21/2017 Insurance Payer Benefit Plan / Group Subscriber ID Type Phone Address [facility] MEDICARE [facility] MEDICARE HMO/PPO xxxxxxxxx HMO Advance Directives Patient has advance care planning documents on file. For more information, please contact:Travis Barbosa[address] [place] [address]
--- OUTSIDE RECORDS SUMMARY | 2018-10-22 11:08 | XMS REPORT | Clinical Summary ---
:1930 Author Organization [facility] Address [address] [place] [address] Care Team Providers Name Role Phone Cesario [...] Not on file Results Not on fileafter 10/21/2017 Insurance Payer Benefit Plan / Group Subscriber ID Type Phone Address CARE IMPROVEMENT MEDICARE MGD CARE IMPROVEMENT PLUS xxxxxxxxx CARE Advance Directives For more information, please contact:[address] [phone] Code Status Date Activated Date Inactivated Comments Full Code 02/24/2017 1:24 AM 02/25/2017 11:42 AM This code status was determined by: Patient
--- OUTSIDE RECORDS SUMMARY | 2018-10-22 11:09 | XMS REPORT ---
:1930 Author Organization [facility] Address Formerly [facility], [facility]–1983 João Ortiz [address] [place] [id number] Care Team Providers Name Role Phone ROBEL [...] (BEAKER) (test KLEBSIELLA PNEUMONIAE SSP >100,000 col/mL rejp=8647) PNEUMONIAE Klebsiella pneumoniae ssp pneumoniae Amikacin (test code=1) Ampicillin + Sulbactam (test code=6) Aztreonam (test code=32) Cefepime (test code=51) Cefoxitin (test code=68) Ceftazidime (test code=27) Ceftriaxone (test code=52) Ertapenem (test code=38) Gentamicin (test code=18) Levofloxacin (test code=22) Meropenem (test code=34) Nitrofurantoin (test code=23) Piperacillin + Tazobactam (test code=29) Tetracycline (test code=2) Tobramycin (test code=25) Trimethoprim + Sulfamethoxazole (test code=47) POCT-GLUCOSE [id number] 07:42:00 Test Item Value Reference Range Comments POC-GLUCOSE METER (BEAKER) 134 mg/dL 70-[address] [facility] [address] [facility] (test ygbo=1104) [facility] [address] POCT-GLUCOSE [id number] 17:57:00 Test Item Value Reference Range Comments POC-GLUCOSE METER (BEAKER) 130 mg/dL 70-[address] [facility] [address] [facility] (test ijdw=6905) [facility] [id number] POCT-GLUCOSE [id number] 11:28:00 Test Item Value Reference Range Comments POC-GLUCOSE METER (BEAKER) 173 mg/dL 70-[address] [facility] [address] (test gfih=8200) [facility] [address] BASIC METABOLIC [id number] 10:58:00 Test Item Value Reference Range Comments SODIUM (BEAKER) (test 139 meq/L 136-145 loxq=392) POTASSIUM (BEAKER) (test 3.5 meq/L 3.5-5.1 psmk=689) CHLORIDE (BEAKER) (test 108 meq/L 98-107 kcim=417) CO2 (BEAKER) (test 20 meq/L 22-29 rzbn=422) BLOOD UREA NITROGEN 16 mg/dL 7-21 (BEAKER) (test udwp=599) CREATININE (BEAKER) (test 0.86 mg/dL 0.57-1.25 frri=895) GLUCOSE RANDOM (BEAKER) 243 mg/dL 70-105 (test skjb=327) CALCIUM (BEAKER) (test 8.4 mg/dL 8.4-10.2 yslz=658) EGFR (BEAKER) (test 63 mL/min/1.73 sq m ESTIMATED GFR IS NOT fquu=2370) ACCURATE CREATININE CLEARANCE IN PREDICTING GLOMERULAR FILTRATION RATE. ESTIMATED GFR IS NOT APPLICABLE FOR DIALYSIS PATIENTS. CBC W/PLT COUNT & AUTO [id number] 10:21:00 Test Item Value Reference Range Comments WHITE BLOOD CELL COUNT (BEAKER) (test uipq=779) 7.2 K/ L 3.5-10.5 RED BLOOD CELL COUNT (BEAKER) (test djff=055) 3.89 M/ L 3.93-5.22 HEMOGLOBIN (BEAKER) (test rmwx=557) 12.0 GM/DL 11.2-15.7 HEMATOCRIT (BEAKER) (test ghpv=188) 35.7 % 34.1-44.9 MEAN CORPUSCULAR VOLUME (BEAKER) (test zqtm=442) 91.8 fL 79.4-94.8 MEAN CORPUSCULAR HEMOGLOBIN (BEAKER) (test 30.8 pg 25.6-32.2 ewrr=704) MEAN CORPUSCULAR HEMOGLOBIN CONC (BEAKER) (test 33.6 GM/DL 32.2-35.5 aptq=718) RED CELL DISTRIBUTION WIDTH (BEAKER) (test 13.2 % 11.7-14.4 zbxj=257) PLATELET COUNT (BEAKER) (test ebps=578) 219 K/CU MM 150-450 MEAN PLATELET VOLUME (BEAKER) (test tnfq=871) 9.5 fL 9.4-12.3 NUCLEATED RED BLOOD CELLS (BEAKER) (test 0 /100 WBC 0-0 vvhj=789) NEUTROPHILS RELATIVE PERCENT (BEAKER) (test 55 % xcjr=092) LYMPHOCYTES RELATIVE PERCENT (BEAKER) (test 37 % nzar=188) MONOCYTES RELATIVE PERCENT (BEAKER) (test 6 % cipe=820) EOSINOPHILS RELATIVE PERCENT (BEAKER) (test 1 % tbln=457) BASOPHILS RELATIVE PERCENT (BEAKER) (test 1 % ewxu=475) NEUTROPHILS ABSOLUTE COUNT (BEAKER) (test 3.95 K/ L 1.56-6.13 kwbw=682) LYMPHOCYTES ABSOLUTE COUNT (BEAKER) (test 2.69 K/ L 1.18-3.74 qail=564) MONOCYTES ABSOLUTE COUNT (BEAKER) (test 0.46 K/ L 0.24-0.36 mkzv=557) EOSINOPHILS ABSOLUTE COUNT (BEAKER) (test 0.06 K/ L 0.04-0.36 ztqe=226) BASOPHILS ABSOLUTE COUNT (BEAKER) (test 0.04 K/ L 0.01-0.08 lycs=144) IMMATURE GRANULOCYTES-RELATIVE PERCENT (BEAKER) 0 % 0-1 (test yrmf=1383) POCT-GLUCOSE [id number] 02:06:00 Test Item Value Reference Range Comments POC-GLUCOSE METER (BEAKER) 166 mg/dL 70-[address] [facility] [address] (test wouf=6888) [facility] [id number]
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
--- NOTE | 2018-10-22 13:10 | RAD REPORT ---
EXAM DESCRIPTION: RAD - Ankle Left 3 View - 10/22/2018 1:04 pm CLINICAL HISTORY: PAIN Fall, trauma, pain COMPARISON: Head C Spine Mpr Wo Con dated 04/19/2017Head Brain Wo Cont dated 05/25/2017No comparison s FINDINGS: Mild soft tissue swelling is seen about the ankle. No acute fracture or dislocation. Moder ate plantar calcaneal spur is evident.
--- NOTE | 2018-10-22 13:37 | EDPHYS ---
Physician Documentation [facility] Name: Lucinda Portillo Age: 88 yrs Sex: Female : 1930 Arrival Date: 10/22/2018 Time: 11:08 Bed 18 Private MD: ED Physician Carlos Esparza HPI: 10/22 13:34 This 88 yrs old Female presents to ER via Ambulatory with complaints of Ankle gs Injury. 13:34 The patient presents with pain. The complaints affect the left ankle. Onset: The gs symptoms/episode began/occurred acutely, yesterday. Context: The problem was sustained at home, resulted from the patient falling, The mechanism of injury involved eversion of the affected ankle. Associated signs and symptoms: Pertinent negatives: numbness. Modifying factors: The symptoms are alleviated by nothing, the symptoms are aggravated by weight bearing, movement. Severity of symptoms: At their worst the symptoms were moderate, in the emergency department the symptoms are unchanged. The patient has experienced similar episodes in the past, a few times. Historical: - Allergies: 11:37 No Known Allergies; sg - Home Meds: 11:37 atorvastatin Oral [Active]; Metformin Oral [Active]; Metoprolol Tartrate Oral [Active]; sg aspirin 81 mg Oral chew 1 tab once daily [Active]; - PMHx: 11:37 cholesterol; Diabetes - NIDDM; Kidney stones; sg - PSHx: 11:37 Mastectomy, Left; Mastectomy, Right; Doble hip join replecement; sg - Immunization history:: Adult Immunizations. - Social history:: The patient lives at home, Smoking status: unknown. ROS: 13:34 Neck: Positive for pain with movement. gs 13:34 Neuro: Positive for headache. 13:34 All other systems are negative. Vital Signs: 11:34 BP 107 / 57; Pulse 76; Resp 16; Temp 99.0; Pulse Ox 97% on R/A; Weight 61.23 kg; Height sg 5 ft. 5 in. (165.10 cm); Pain 10/10; 13:08 BP 125 / 53; Pulse 72; Resp 18; Pulse Ox 97% on R/A; mh5 11:34 Body Mass Index 22.46 (61.23 kg, 165.10 cm) sg MDM: 12:22 Patient medically screened. gs 13:34 Differential diagnosis: fracture, sprain. Data reviewed: vital signs, nurses notes, radiologic studies. Counseling: I had a detailed discussion with the patient and/or guardian regarding: radiology results, the need for outpatient follow up. Response to treatment: the patient's symptoms have markedly improved after treatment, and as a result, I will discharge patient. 10/22 12:25 Order name: Ankle Left 3 View XRAY; Complete Time: 13:14 10/22 12:25 Order name: CT Head C Spine; Complete Time: 13:14 10/22 13:37 Order name: Magno Wrap; Complete Time: 13:46 Administered Medications: No medications were administered Disposition: 10/22/18 13:36 Discharged to Home. Impression: Sprain of ankle, Sprain of ligaments of cervical spine. - Condition is Stable. - Discharge Instructions: Ankle Sprain, Cervical Sprain. - Prescriptions for Tylenol- Codeine #3 300-30 mg Oral Tablet - take 1 tablet by ORAL route every 6 hours As needed; 10 tablet. - Medication Reconciliation Form, Thank You Letter, Antibiotic Education, Prescription Opioid Use form. - Follow up: Private Physician; When: 2 - 3 days; Reason: Re-evaluation by your physician. Signatures: Dispatcher [employer] EDMS Alex Poe RN RN Neha Ac RN RN jl7 Carlos Esparza MD MD Corrections: (The following items were deleted from the chart) 13:52 13:36 10/22/2018 13:36 Discharged to Home. Impression: Sprain of ankle; Sprain of jl7 ligaments of cervical spine. Condition is Stable. Forms are Medication Reconciliation Form, Thank You Letter, Antibiotic Education, Prescription Opioid Use. Follow up: Private Physician; When: 2 - 3 days; Reason: Re-evaluation by your physician.
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
== END 2018-10-22 13:52 | disposition home or self-care (01) ==
LOC: ER 11:05
DX: S13.4XXA Sprain of ligaments of cervical spine, initial encounter (principal); S93.402A Sprain of unspecified ligament of left ankle, initial encounter; W19.XXXA Unspecified fall, initial encounter; Y93.9 Activity, unspecified; Y92.009 Unspecified place in unspecified non-institutional (private) residence as the place of occurrence of the external cause; Z79.82 Long term (current) use of aspirin; Z87.442 Personal history of urinary calculi; Z90.13 Acquired absence of bilateral breasts and nipples; E11.9 Type 2 diabetes mellitus without complications
CPT/HCPCS: 70450; 72125; 99284

== ENCOUNTER 2019-03-09 10:45 | Emergency (ER) | payer MEDICARE ==
--- OUTSIDE RECORDS SUMMARY | 2019-03-09 10:48 | XMS REPORT | Clinical Summary ---
:1930 Author Organization [facility] Address [address] [place] [address] Care Team Providers Name Role Phone Cesario [...] Not on file Results Not on fileafter 03/08/2018 Insurance Payer Benefit Plan / Group Subscriber ID Type Phone Address CARE IMPROVEMENT MEDICARE MGD CARE IMPROVEMENT PLUS xxxxxxxxx CARE Advance Directives For more information, please contact:[address] [phone] Code Status Date Activated Date Inactivated Comments Full Code 02/24/2017 1:24 AM 02/25/2017 11:42 AM This code status was determined by: Patient
--- OUTSIDE RECORDS SUMMARY | 2019-03-09 10:48 | XMS REPORT | Clinical Summary ---
:1930 Author Organization [facility] Address [address] [place] [address] Care Team Providers Name Role Phone Cole [...] 5,000 mcg Take by mouth. 0 Active tablet,disintegra ting vortioxetine Take by mouth. 0 Active (TRINTELLIX) 10 mg tablet NYAMYC 100,000 APPLY 60 g 0 10/02/2018 Active unit/gram powder TOPICALLY 4 TIMES DAILY losartan (COZAAR) TAKE ONE-HALF 45 tablet 2 10/02/2018 Active 25 MG TABLET BY tabletIndications MOUTH DAILY : Essential hypertension diclofenac Apply 100 g 1 10/27/2018 Active (VOLTAREN) 1 % topically 4 gelIndications: (four) times a OA day. (osteoarthritis) of finger, unspecified laterality naproxen Take 1 tablet 20 tablet 0 02/01/2019 02/01/20 Active (NAPROSYN) 500 MG (500 mg total) 20 tablet by mouth 2 (two) times a day with meals. montelukast TAKE 1 TABLET 90 tablet 1 02/18/2019 Active (SINGULAIR) 10 mg BY MOUTH tablet NIGHTLY gabapentin TAKE 1 CAPSULE 180 capsule 1 02/18/2019 Active (NEURONTIN) 100 BY MOUTH TWO mg capsule TIMES DAILY omeprazole TAKE 1 CAPSULE 180 capsule 0 02/18/2019 Active (PriLOSEC) 20 MG BY MOUTH TWO capsule TIMES DAILY glimepiride TAKE 1 TABLET 90 tablet 1 02/18/2019 Active (AMARYL) 2 MG BY MOUTH tablet DAILY BEFORE BREAKFAST atorvastatin TAKE 1 TABLET 90 tablet 0 02/18/2019 Active (LIPITOR) 10 MG BY MOUTH tablet DAILY omeprazole Take 1 capsule 180 capsule 1 11/26/2017 07/10/19 Discontinued (PriLOSEC) 20 MG (20 mg total) 19 capsule by mouth 2 (two) times a day. glimepiride Take 1 tablet 90 tablet 1 11/26/2017 05/22/20 Discontinued (AMARYL) 2 MG (2 mg total) 18 tablet by mouth daily before breakfast. atorvastatin Take 1 tablet 90 tablet 1 11/26/2017 07/10/19 Discontinued (LIPITOR) 10 MG (10 mg total) 19 tablet by mouth daily. diclofenac Apply 100 g 1 01/02/2018 04/03/20 Discontinued (VOLTAREN) 1 % topically 4 18 (Reorder) gel (four) times a day. losartan (COZAAR) Take 0.5 90 tablet 0 01/23/2018 05/27/20 Discontinued 25 MG tablets (12.5 18 (Reorder) tabletIndications mg total) by : Essential mouth daily. hypertension diclofenac Apply 100 g 1 04/03/2018 06/10/20 Discontinued (VOLTAREN) 1 % topically 4 18 (Reorder) gelIndications: (four) times a Osteoporosis day. screening nystatin Apply 60 g 0 04/03/2018 07/09/19 Discontinued (MYCOSTATIN) topically 4 19 (Reorder) 100,000 unit/gram (four) times a powder day. gabapentin Take 1 capsule 180 capsule 1 04/03/2018 10/02/19 Discontinued (NEURONTIN) 100 (100 mg total) 19 (Reorder) mg capsule by mouth 2 (two) times a day for 90 days. montelukast Take 1 tablet 90 tablet 1 04/03/2018 10/02/19 Discontinued (SINGULAIR) 10 mg (10 mg total) 19 (Reorder) tablet by mouth nightly. glimepiride TAKE 1 TABLET 90 tablet 1 05/22/2018 10/02/19 Discontinued (AMARYL) 2 MG BY MOUTH 19 (Reorder) tablet DAILY BEFORE BREAKFAST losartan (COZAAR) Take 0.5 90 tablet 0 05/29/2018 10/02/19 Discontinued 25 MG tablets (12.5 19 (Reorder) tabletIndications mg total) by : Essential mouth daily. hypertension diclofenac Apply 100 g 1 06/10/2018 07/29/19 Discontinued (VOLTAREN) 1 % topically 4 19 (Reorder) gelIndications: (four) times a Osteoporosis day. screening omeprazole TAKE 1 CAPSULE 180 capsule 0 07/10/2018 10/02/19 Discontinued (PriLOSEC) 20 MG BY MOUTH TWO 19 (Reorder) capsule TIMES DAILY nystatin APPLY 60 g 0 07/10/2018 10/02/19 Discontinued (MYCOSTATIN) TOPICALLY 4 19 (Reorder) 100,000 unit/gram (FOUR) TIMES powder A DAY. atorvastatin TAKE 1 TABLET 90 tablet 0 07/10/2018 10/02/19 Discontinued (LIPITOR) 10 MG BY MOUTH 19 (Reorder) tablet DAILY cefdinir Take 1 capsule 14 capsule 0 07/29/2018 08/05/19 (OMNICEF) 300 MG (300 mg total) 19 capsule by mouth 2 (two) times a day for 7 days. diclofenac Apply 100 g 1 07/29/2018 10/17/19 Discontinued (VOLTAREN) 1 % topically 4 19 (Reorder) gelIndications: (four) times a Osteoporosis day. screening glimepiride TAKE 1 TABLET 90 tablet 1 10/02/2018 02/18/20 Discontinued (AMARYL) 2 MG BY MOUTH 19 (Reorder) tablet DAILY BEFORE BREAKFAST atorvastatin TAKE 1 TABLET 90 tablet 0 10/02/2018 02/18/20 Discontinued (LIPITOR) 10 MG BY MOUTH 19 (Reorder) tablet DAILY gabapentin TAKE 1 CAPSULE 180 capsule 1 10/02/2018 02/18/20 Discontinued (NEURONTIN) 100 BY MOUTH TWO 19 (Reorder) mg capsule TIMES A DAY omeprazole TAKE 1 CAPSULE 180 capsule 0 10/02/2018 02/18/20 Discontinued (PriLOSEC) 20 MG BY MOUTH TWO 19 (Reorder) capsule TIMES DAILY montelukast TAKE 1 TABLET 90 tablet 1 10/02/2018 02/18/20 Discontinued (SINGULAIR) 10 mg BY MOUTH 19 (Reorder) tablet NIGHTLY diclofenac Apply 100 g 1 10/16/2018 10/28/19 Discontinued (VOLTAREN) 1 % topically 4 19 (Reorder) gelIndications: (four) times a Osteoporosis day. screening mometasone 2 sprays into 17 g 0 01/05/2019 02/03/20 (NASONEX) 50 each nostril 19 mcg/actuation daily for 28 nasal spray days. Hospital, Clinic, or Other Ordered Dose Route Frequency Start Date End Date Status Facility Administered Medication keTOROlac (TORadol) 30 mg IM once 02/01/2019 02/01/2019 Ended injection 30 mgIndications: Primary osteoarthritis of right knee Active Problems Problem Noted Date History of breast cancer 08/28/2017 Encounters Date Type Specialty Care Team Description 02/17/2019 Refill Cole Pizarro MD 02/16/2019 [facility] Radiology Cole Boo MD Chronic abdominal Encounter pain 02/16/2019 [facility] Radiology Cole Boo MD Bilateral swelling of feet; Encounter Polyneuropathy 02/15/2019 Office Visit Cole Pizarro MD Discharge from eye (Primary Dx); Primary osteoarthritis of right knee; Bilateral swelling of feet; Polyneuropathy; Chronic abdominal pain; Type 2 diabetes mellitus without complication, without long-term current use of insulin (HCC); Essential hypertension; Hyperlipidemia, unspecified hyperlipidemia type 02/05/2019 Telephone Cole Pizarro MD 02/01/2019 Office Visit Cole Pizarro MD Primary osteoarthritis of right knee (Primary Dx); Type 2 diabetes mellitus without complication, without long-term current use of insulin (HCC); Essential hypertension; Hyperlipidemia, unspecified hyperlipidemia type 01/26/2019 Telephone Access Janette Sharma RN 01/26/2019 Nurse Triage Access Janette Sharma RN 01/15/2019 Telephone Cole Pizarro MD 01/11/2019 Telephone Cole Pizarro MD Fall, initial encounter (Primary Dx); Type 2 diabetes mellitus without complication, without long-term current use of insulin (HCC) 01/08/2019 Telephone Cole Pizarro MD 01/05/2019 Office Visit Cole Pizarro MD Type 2 diabetes mellitus without complication, without long-term current use of insulin (HCC) ( Primary Dx); Essential hypertension; OA (osteoarthritis) of finger, unspecified laterality; Hyperlipidemia, unspecified hyperlipidemia type 11/04/2018 Telephone Cole Pizarro MD 11/03/2018 Telephone Family Cole Crotes MD 10/30/2018 Telephone Cole Pizarro MD 10/27/2018 Office Visit Family Cole Cortes MD Osteoporosis screening (Primary Dx); Essential hypertension; OA (osteoarthritis) of finger, unspecified laterality; Type 2 diabetes mellitus without complication, without long-term current use of insulin (HCC); Hyperlipidemia, unspecified hyperlipidemia type; Injury of left foot, subsequent encounter; History of skin cancer 10/16/2018 Refill Family Heidy Sanchez MA Osteoporosis screening 10/01/2018 Refill Family Cole Cortes MD Essential hypertension 07/29/2018 Office Visit Cole Pizarro MD Osteoporosis screening 07/09/2018 Refill Cole Pizarro MD 06/10/2018 Refill Family Heidy Sanchez MA Osteoporosis screening 05/27/2018 Refill Family Heidy Sanchez MA Essential hypertension 05/21/2018 Refill Cole Pizarro MD 05/04/2018 Office Visit Family Cole Cortes MD Essential hypertension (Primary Dx); Hyperlipidemia, unspecified hyperlipidemia type; Type 2 diabetes mellitus without complication, without long-term current use of insulin (HCC); Fibromyalgia; Chronic cough; Benign paroxysmal positional vertigo of left ear 04/22/2018 Office Visit Orthopedic Surgery Enrrique Maradiaga Lumbar pain ( Primary JLori, Dx) 04/17/2018 Telephone Family Medicine [place] Ramriez MA 04/17/2018 Orders Only Orthopedic Surgery Quincy Bonner, Pain of left hip Syl joint (Primary Dx) 04/16/2018 Telephone Cole Pizarro MD 04/16/2018 Nurse Triage Access Deepali Conn RN 04/06/2018 Telephone Family [place] Curtis MA 04/03/2018 Office Visit Family Cole Cortes MD Osteoporosis screening (Primary Dx); Essential hypertension; OA (osteoarthritis) of finger, unspecified laterality; Hyperlipidemia, unspecified hyperlipidemia type; Type 2 diabetes mellitus without complication, without long-term current use of insulin; Fibromyalgia; Chronic cough after 03/08/2018 Social History Tobacco Use Types Packs/Day Years [...] Vital Signs Vital Sign Reading Time Taken Comments Blood Pressure 146/66 02/15/2019 2:55 PM CDT Pulse 76 02/15/2019 2:55 PM CDT Temperature 36.6 C (97.8 F) 02/15/2019 2:55 PM CDT Respiratory Rate - - Oxygen Saturation - - Inhaled Oxygen Concentration - - Weight 64.4 kg (142 lb) 02/15/2019 2:55 PM CDT Height 162.6 cm (5' 4") 02/15/2019 2:55 PM CDT Body Mass Index 24.37 02/15/2019 2:55 PM CDT Plan of Treatment Date Type Specialty Care Team Description 04/06/2019 Office Visit Family Medicine AliCole MD [address] [place] [address] [phone] Health Maintenance Due Date Last Done Comments DIABETIC RETINAL EYE EXAM 1930 DIABETIC FOOT EXAM 1940 SHINGLES VACCINES (#1) 1980 65+ PNEUMOCOCCAL VACCINE (1 of 2 1995 - PCV13) INFLUENZA VACCINE 05/06/2019 04/06/2013 Postponed from 02/04/2019 (Patient Refused) Procedures Procedure Name Priority Date/Time Associated Diagnosis Comments CT ABDOMEN WWO Routine 02/16/2019 1:50 Chronic abdominal pain Results for this CONTRAST PELVIS W PM CDT procedure are in CONTRAST the results section. US DUPLEX VENOUS Routine 02/16/2019 12:32 Bilateral swelling of Results for this LOWER EXTREMITY PM CDT feet procedure are in BILATERAL Polyneuropathy the results section. HEMOGLOBIN A1C Routine 01/05/2019 12:13 Type 2 diabetes Results for this PM CDT mellitus without procedure are in complication, without the results long-term current use section. of insulin ([facility]) COMPREHENSIVE Routine 01/05/2019 12:13 Type 2 diabetes Results for this METABOLIC PANEL PM CDT mellitus without procedure are in complication, without the results long-term current use section. of insulin ([facility]) Essential hypertension OA (osteoarthritis) of finger, unspecified laterality CBC WITH PLATELET AND Routine 01/05/2019 12:13 Essential hypertension Results for this DIFFERENTIAL PM CDT Hyperlipidemia, procedure are in unspecified the results hyperlipidemia type section. XR FOOT 3+ VW LEFT Routine 10/27/2018 10:28 Injury of left foot, Results for this AM CDT subsequent encounter procedure are in the results section. HEMOGLOBIN A1C Routine 10/27/2018 8:56 Type 2 diabetes Results for this AM CDT mellitus without procedure are in complication, without the results long-term current use section. of insulin (HCC) LIPID PANEL Routine 10/27/2018 8:56 Hyperlipidemia, Results for this AM CDT unspecified procedure are in hyperlipidemia type the results section. COMPREHENSIVE Routine 10/27/2018 8:56 Essential hypertension Results for this METABOLIC PANEL AM CDT Type 2 diabetes procedure are in mellitus without the results complication, without section. long-term current use of insulin (HCC) Hyperlipidemia, unspecified hyperlipidemia type XR LUMBAR SPINE 2 OR Routine 04/22/2018 [...] without long-term current use of insulin after 03/08/[address] Abdomen WWO Contrast, Pelvis W Contrast (02/16/2019 1:50 PM CDT) Specimen Narrative Performed At EXAMINATION:CT ABDOMEN WWO CONTRAST PELVIS W CONTRAST [facility] CLINICAL HISTORY:R10.9 Unspecified abdominal pain, G89.29 Other chronic pain, chronic abdominal on both upper abdominal. TECHNIQUE: Noncontrast images of the abdomen were obtained. Subsequently, axial images of the abdomen and pelvis were obtained following intravenous administration of iodinated contrast. Sagittal and coronal computerized reformatted images were also obtained.. All CT images were acquired using low-dose technique with automated exposure control. COMPARISON: None. FINDINGS: Abdomen: 1.Limited images to the lung bases demonstrates extensive calcifications involving the mitral valve annulus. 2.Bilateral breast implants. Left breast implant rupture. 3.The liver, gallbladder, spleen, pancreas, and adrenal glands appear normal. 4.Small periampullary duodenal diverticulum. 5.No hydronephrosis. 6.Diverticulosis without acute inflammatory changes. 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 2.A pelvic mass or fluid collection is not identified. 3.No retroperitoneal lymphadenopathy. 4.There are degenerative changes involving the thoracolumbar spine. IMPRESSION: 1.No acute abnormalities. 2.Left breast implant rupture. 3.Diverticulosis. [id number] Procedure Note Interface, Radiology Results Incoming - 02/16/2019 2:37 PM CDT EXAMINATION: CT ABDOMEN WWO CONTRAST PELVIS W CONTRAST CLINICAL HISTORY: R10.9 Unspecified abdominal pain, G89.29 Other chronic pain , chronic abdominal on both upper abdominal. TECHNIQUE: Noncontrast images of the abdomen were obtained. Subsequently, axial images of the abdomen and pelvis were obtained following intravenous administration of iodinated contrast. Sagittal and coronal computerized reformatted images were also obtained.. All CT images were acquired using low-dose technique with automated exposure control. COMPARISON: None. FINDINGS: Abdomen: 1. Limited images to the lung bases demonstrates extensive calcifications involving the mitral valve annulus. 2. Bilateral breast implants. Left breast implant rupture. 3. The liver, gallbladder, spleen, pancreas, and adrenal glands appear normal. 4. Small periampullary duodenal diverticulum. 5. No hydronephrosis. 6. Diverticulosis without acute inflammatory changes. Pelvis: 1. 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 2. A pelvic mass or fluid collection is not identified. 3. No retroperitoneal lymphadenopathy. 4. There are degenerative changes involving the thoracolumbar spine. IMPRESSION: 1. No acute abnormalities. 2. Left breast implant rupture. 3. Diverticulosis. [id number] Performing Organization Address [facility]/Zipcode Phone Number [facility] [address] [place] [address] Us duplex venous lower extremity (02/16/2019 12:32 PM CDT) Specimen Narrative Performed At EXAMINATION:US DUPLEX VENOUS LOWER EXTREMITY BILATERAL [facility] CLINICAL HISTORY:M79.89 Other specified soft tissue disorders, G62.9 Polyneuropathyunspecified, swelling on both feet with pain. COMPARISON:None. TECHNIQUE:Grayscale, color Doppler, and spectral waveform analysis of the bilateral lower extremity deep venous systems was performed. The bilateral common femoral, superficial femoral, proximal deep femoral, greater saphenous, and popliteal veins were evaluated. The calf vessels were also evaluated. FINDINGS: The bilateral common femoral, superficial femoral, and popliteal veins are compressible. They demonstrate normal venous waveforms and response to augmentation. There is flow in the visualized calf veins. IMPRESSION: No evidence of lower extremity deep venous thrombosis. [id number] Procedure Note Interface, Radiology Results Incoming - 02/16/2019 12:38 PM CDT EXAMINATION: US DUPLEX VENOUS LOWER EXTREMITY BILATERAL CLINICAL HISTORY: M79.89 Other specified soft tissue disorders, G62.9 Polyneuropathy unspecified, swelling on both feet with pain. COMPARISON: None. TECHNIQUE: Grayscale, color Doppler, and spectral waveform analysis of the bilateral lower extremity deep venous systems was performed. The bilateral common femoral, superficial femoral, proximal deep femoral, greater saphenous, and popliteal veins were evaluated. The calf vessels were also evaluated. FINDINGS: The bilateral common femoral, superficial femoral, and popliteal veins are compressible. They demonstrate normal venous waveforms and response to augmentation. There is flow in the visualized calf veins. IMPRESSION: No evidence of lower extremity deep venous thrombosis. [id number] Performing Organization Address [facility]/Zipcode Phone Number [facility] [address] [place] [address] CBC with platelet and differential (01/05/2019 12:13 PM CDT)Only the most recent of2 resultswithin the time period is included. WBC 7.5 3.4 - 10.8 x10E3/uL [facility] RBC 4.38 3.77 - 5.28 x10E6/uL [facility] HGB 13.2 11.1 - 15.9 g/dL [facility] HCT 39.3 34.0 - 46.6 % [facility] MCV 90 79 - 97 fL [facility] MCH 30.1 26.6 - 33.0 pg [facility] MCHC 33.6 31.5 - 35.7 g/dL [facility] RDW 14.0 12.3 - 15.4 % [facility] Platelet count 253 150 - 450 x10E3/uL [facility] Neutrophils 56 Not Estab. % [facility] Lymphocytes 37 Not Estab. % [facility] Monocytes 6 Not Estab. % [facility] Eosinophils 1 Not Estab. % [facility] Basophils 0 Not Estab. % [facility] Neutrophils, absolute 4.2 1.4 - 7.0 x10E3/uL [facility] Lymphocytes, absolute 2.8 0.7 - 3.1 x10E3/uL [facility] Monocytes, absolute 0.5 0.1 - 0.9 x10E3/uL [facility] Eosinophils, absolute 0.1 0.0 - 0.4 x10E3/uL [facility] Basophils, absolute 0.0 0.0 - 0.2 x10E3/uL [facility] Immature granulocytes 0 Not Estab. % [facility] Immature grans (abs) 0.0 0.0 - 0.1 x10E3/uL [facility] Specimen Blood Narrative Performed At Performed at: [id number] Driver'S License Reviewing Officer: Marcelo Rush MD, Phone:[phone] Performing Organization Address [facility] Phone Number [facility] Hemoglobin A1c (01/05/2019 12:13 PM CDT)Only the most recent of3 resultswithin the time period is included. Hemoglobin A1C 7.4 (H) 4.8 - 5.6 % [facility] Comment: Prediabetes: 5.7 - 6.4 Diabetes: >6.4 Glycemic control for adults with diabetes: <7.0 Specimen Blood Narrative Performed At Performed at:[address] [place], [place] [id number] Driver'S License Reviewing Officer: Marcelo Rush MD, Phone:[phone] Performing Organization Address [facility] Phone Number [facility] Comprehensive metabolic panel (01/05/2019 12:13 PM CDT)Only the most recent of3 resultswithin the time period is included. Glucose 95 65 - 99 mg/dL [facility] BUN, whole blood 17 8 - 27 mg/dL [facility] Creatinine 0.77 0.57 - 1.00 mg/dL [facility] EGFR Non-Afr. Malagasy 69 >59 mL/min/1.73 [facility] EGFR 80 >59 mL/min/1.73 [facility] BUN/creatinine ratio 22 12 - 28 [facility] Sodium 142 134 - 144 mmol/L [facility] Potassium 4.4 3.5 - 5.2 mmol/L [facility] Chloride 105 96 - 106 mmol/L [facility] CO2 22 20 - 29 mmol/L [facility] Calcium 9.5 8.7 - 10.3 mg/dL [facility] Protein 7.0 6.0 - 8.5 g/dL [facility] Albumin, S 4.5 3.5 - 4.7 g/dL [facility] Globulin, total 2.5 1.5 - 4.5 g/dL [facility] Albumin/globulin ratio 1.8 1.2 - 2.2 [facility] Total bilirubin 0.4 0.0 - 1.2 mg/dL [facility] Alkaline phosphatase 94 39 - 117 IU/L [facility] AST 22 0 - 40 IU/L [facility] ALT 19 0 - 32 IU/L [facility] Specimen Blood Narrative Performed At Performed at:01 - [facility] [address] [place], [id number] Driver'S License Reviewing Officer: Marcelo Rush MD, Phone:[phone] Performing Organization Address City/State/Zipcode Phone Number [facility] XR Foot 3+ Vw Left (10/27/2018 10:28 AM CDT) Specimen Narrative Performed At EXAMINATION:XR FOOT 3VW LEFT [facility] CLINICAL HISTORY:S99.922D Unspecified injury of left footsubsequent encounter, patient had a fall 7 days ago and has pain and swelling on the left dorsal aspect of the foot. COMPARISON:None. IMPRESSION: There appears to been resection of the distal and of the fifth metatarsal.There is no evidence of destructive lesion. There is remodeling of the distal end of the first metatarsal compatible with previous surgical procedure.A portion of the proximal phalanx was also resected. 1.There is no evidence of acute left foot fracture or dislocation. There are no radiopaque foreign bodies. 2.There are no focal bony erosions or periostitis. [id number] Procedure Note Hm Interface, Radiology Results Incoming - 10/27/2018 11:27 AM CDT EXAMINATION: XR FOOT 3 VW LEFT CLINICAL HISTORY: S99.922D Unspecified injury of left foot subsequent encounter, patient had a fall 7 days ago and has pain and swelling on the left dorsal aspect of the foot. COMPARISON: None. IMPRESSION: There appears to been resection of the distal and of the fifth metatarsal. There is no evidence of destructive lesion. There is remodeling of the distal end of the first metatarsal compatible with previous surgical procedure. A portion of the proximal phalanx was also resected. 1. There is no evidence of acute left foot fracture or dislocation. There are no radiopaque foreign bodies. 2. There are no focal bony erosions or periostitis. [id number] Performing Organization Address City/[facility] Phone Number [facility] [address] [place] [address] Lipid panel (10/27/2018 8:56 AM CDT)Only the most recent of2 resultswithin the time period is included. Cholesterol 114 100 - 199 mg/dL [facility] Triglycerides 78 0 - 149 mg/dL [facility] HDL cholesterol 48 >39 mg/dL [facility] VLDL cholesterol fercho 16 5 - 40 mg/dL [facility] LDL cholesterol calculated 50 0 - 99 mg/dL [facility] Non-HDL cholesterol 66 0 - 129 mg/dL [facility] Specimen Blood Narrative Performed At Performed at: - [facility] [address], [id number] Driver'S License Reviewing Officer: Marcelo Rush MD, Phone:[phone] Performing Organization Address City/[place]/[employer] Phone Number [facility] XR Lumbar Spine 2 Or 3 Vw (04/22/2018 9:08 AM CDT) Specimen Narrative Performed At Spine films demonstrate degenerative changes throughout the lumbar spine [facility] with degenerative disc disease and a grade 1 spine the L3-4. Performing Organization Address City/[facility] Phone Number [facility] [address] [place] [address] XR Hip 2-3 View Left (04/22/2018 8:03 AM CDT) Specimen Narrative Performed At Hip x-rays show bilateral hip arthroplasties in place to all components [facility] are stable. Excellent buddhist of leg length and offset. 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
--- OUTSIDE RECORDS SUMMARY | 2019-03-09 10:48 | XMS REPORT ---
:1930 [facility] [address] Ortiz [address] [place] [id number] Care Team Providers Name Role Phone CRISTIAN CLEMENS Primary Care Provider Unavailable CRISTIAN CLEMENS Unavailable Unavailable ROBEL DUNCAN Unavailable Unavailable Problems This patient has no known problems. Allergies, Adverse Reactions, Alerts This patient has no known allergies or adverse reactions. Medications This patient has no known medications. Encounters Start End Encounter Admission Attending Care Care Encounter Date/Time Date/Time Type Type Clinicians Facility Department ID 2017-06-16 2017-06-16 Outpatient C [facility] [id number] 19:27:00 19:27:00 CRISTIAN Results Test Description Test Time Test Comments Text Results Atomic Results Result Comments Glycosylated Hemoglobin 2017-06-17 01:55:00 Test Item Value Reference Range Comments HBA1c (test code=HBA1C) 7.0 % 4.8-5.9 Comprehensive Metabolic [id number] 22:29:00 Test Item Value Reference Range Comments Sodium (test code=NA) 142 mmol/L 135-145 Potassium (test code=K) 4.1 mmol/L 3.5-5.1 Chloride (test code=CL) 103 mmol/L 98-105 Carbon Dioxide (test 26 mmol/L 22-29 code=CO2) Glucose (test code=GLU) 144 mg/dL 70-115 Blood Urea Nitrogen 16 mg/dL 8-23 (test code=BUN) Creatinine (test 0.8 mg/dL 0.5-0.9 code=CREAT) Calcium (test code=CA) 9.5 mg/dL 8.3-10.5 Prot Total (test 6.9 g/dL 6.4-8.3 code=TP) Albumin (test code=ALB) 4.3 g/dL 3.5-5.2 A/G Ratio (test 1.7 Ratio code=AGRATIO) Globulin (test 2.6 2.9-3.1 code=GLOB) Bili Total (test 0.5 mg/dL 0.1-0.9 code=TBIL) Alk Phos (test 72 U/L 35-104 code=APHOS) AST (test code=AST) 19 U/L 1-32 ALT (test code=ALT) 15 U/L 1-33 BUN/Creatinine Ratio 20.0 (test code=BCRATIO) Anion Gap (test 13 mmol/L 7-16 code=AGAP) Estimated GFR (test >60 mL/min/1.73m2 eGFR (estimated Glomerular code=GFR) Filtration Rate) is an estimated value,calculated from the patient's serum creatinine using the MDRD equation.It is NOT the patient's actual GFR. The eGFR provides a more clinicallyuseful measure of kidney disease than serum creatinine alone.This calculation takes sex and race into account, if the informationis provided. If the race is not provided, and the patient isAfrican-Sierra [place]an, multiply by 1.212. If sex is not provided, and thepatient is female, multiply by 0.742. Results for patients <18 years ofage have not been validated by the MDRD study and should be interpretedwith caution.eGFR Result Interpretation:eGFR > or=60 is in the Normal RangeeGFR < 60 may mean kidney diseaseeGFR < 15 may mean kidney failureRanges recommended by the National Kidney Foundation,http://nkdep.nih .gov [id number] 22:29:00 Test Item Value Reference Range Comments NT ProBnp (test code=PBNP) 152 pg/mL 0-449 Lipid [id number] 22:29:00 Test Item Value Reference Range Comments Cholesterol (test 145 mg/dL 0-200 code=CHOL) Triglycerides (test 147 mg/dL 9-200 code=TRIG) HDL (test code=HDL) 54 mg/dL 50-60 Chol/HDL (test 2.7 Ratio 0.0-4.4 code=CHOLPHDL) LDL, Calculated (test 62 0-130 (NOTE)RISK OF HEART code=LDLC) DISEASEPublished by Sierra Leonean Heart AssociationAnalyte Optimal Boderline Increased RiskCHOL <200 200-239 >240TRIG <150 150-199 >200HDL Male: >60 <40HDL Female: >60 <50LDL <100 130-159 >160LDL NEAR OPTIMAL IS 100-129 VLDL (test code=VLDL) 29 mg/dL 5-40 LDL/HDL (test code=LDLPHDL) 1 CBC with [id number] 22:20:00 Test Item Value Reference Range Comments WBC (test code=WBC) 7.3 K/cumm 4.4-10.5 RBC (test code=RBC) 4.38 M/cumm 3.75-5.20 Hemoglobin (test code=HGB) 13.4 gm/dL 12.2-14.8 Hematocrit (test code=HCT) 40.3 % 36.5-44.4 MCV (test code=MCV) 92.0 fL 80-100 MCH (test code=MCH) 30.7 pg 27.0-32.5 MCHC (test code=MCHC) 33.3 g/dL 32.0-37.5 RDW (test code=RDW) 13.3 % 11.5-14.5 Platelet Count (test code=PLTCT) 245 K/cumm 140-440 MPV (test code=MPV) 12.3 fL Diff Method (test code=DIFFM) Auto Neutrophil (test code=NEUT) 52.7 % 36-70 Lymphocyte (test code=LYMPH) 40.4 % 12-44 Monocyte (test code=MONO) 5.2 % 0-11 Eosinophil (test code=EOS) 1.3 % 0-7 Basophil (test code=BASO) 0.5 % 0-2 Neutro Abs (test code=ANEUT) 3.8 K/cumm 1.6-7.4 Lymph Abs (test code=ALYMPH) 2.9 K/cumm 0.5-4.6 [place] Abs (test code=AMONO) 0.4 K/cumm 0.0-1.2 Eos Abs (test code=AEOS) 0.09 K/cumm 0.00-0.74 Baso Abs (test code=ABASO) 0.0 K/cumm 0.00-0.21 URINE [id number] 09:24:00 Test Item Value Reference Range Comments CULTURE (BEAKER) (test KLEBSIELLA PNEUMONIAE >100,000 col/mL zfpk=1299) SSP PNEUMONIAE Klebsiella pneumoniae ssp pneumoniae Amikacin (test code=1) Ampicillin + Sulbactam (test code=6) Aztreonam (test code=32) Cefepime (test code=51) Cefoxitin (test code=68) Ceftazidime (test code=27) Ceftriaxone (test code=52) Ertapenem (test code=38) Gentamicin (test code=18) Levofloxacin (test code=22) Meropenem (test code=34) Nitrofurantoin (test code=23) Piperacillin + Tazobactam (test code=29) Tetracycline (test code=2) Tobramycin (test code=25) Trimethoprim + Sulfamethoxazole (test code=47) POCT-GLUCOSE [id number] 07:42:00 Test Item Value Reference Range Comments POC-GLUCOSE METER (BEAKER) 134 mg/dL 70-110 TESTED AT [address] (test adxn=7244) [place] [id number] POCT-GLUCOSE [id number] 17:57:00 Test Item Value Reference Range Comments POC-GLUCOSE METER (BEAKER) 130 mg/dL 70-110 TESTED AT [address] (test pkoj=4871) [place] [id number] POCT-GLUCOSE [id number] 11:28:00 Test Item Value Reference Range Comments POC-GLUCOSE METER (BEAKER) 173 mg/dL 70-110 TESTED AT [address] (test vymy=5764) [facility] [id number] BASIC METABOLIC [id number] 10:58:00 Test Item Value Reference Range Comments SODIUM (BEAKER) (test 139 meq/L 136-145 dekd=106) POTASSIUM (BEAKER) (test 3.5 meq/L 3.5-5.1 slcy=416) CHLORIDE (BEAKER) (test 108 meq/L 98-107 dklu=820) CO2 (BEAKER) (test 20 meq/L 22-29 xypg=529) BLOOD UREA NITROGEN 16 mg/dL 7-21 (BEAKER) (test lrzx=077) CREATININE (BEAKER) (test 0.86 mg/dL 0.57-1.25 ophe=862) GLUCOSE RANDOM (BEAKER) 243 mg/dL 70-105 (test bbkf=512) CALCIUM (BEAKER) (test 8.4 mg/dL 8.4-10.2 dghg=267) EGFR (BEAKER) (test 63 mL/min/1.73 sq m ESTIMATED GFR IS NOT dttw=5085) ACCURATE CREATININE CLEARANCE IN PREDICTING GLOMERULAR FILTRATION RATE. ESTIMATED GFR IS NOT APPLICABLE FOR DIALYSIS PATIENTS. CBC W/PLT COUNT & AUTO [id number] 10:21:00 Test Item Value Reference Range Comments WHITE BLOOD CELL COUNT (BEAKER) (test nhpn=360) 7.2 K/ L 3.5-10.5 RED BLOOD CELL COUNT (BEAKER) (test tpdu=683) 3.89 M/ L 3.93-5.22 HEMOGLOBIN (BEAKER) (test lprj=936) 12.0 GM/DL 11.2-15.7 HEMATOCRIT (BEAKER) (test zvtg=419) 35.7 % 34.1-44.9 MEAN CORPUSCULAR VOLUME (BEAKER) (test klnv=810) 91.8 fL 79.4-94.8 MEAN CORPUSCULAR HEMOGLOBIN (BEAKER) (test 30.8 pg 25.6-32.2 lyvy=005) MEAN CORPUSCULAR HEMOGLOBIN CONC (BEAKER) (test 33.6 GM/DL 32.2-35.5 ucyu=419) RED CELL DISTRIBUTION WIDTH (BEAKER) (test 13.2 % 11.7-14.4 rvdw=060) PLATELET COUNT (BEAKER) (test xjof=170) 219 K/CU MM 150-450 MEAN PLATELET VOLUME (BEAKER) (test ypsr=100) 9.5 fL 9.4-12.3 NUCLEATED RED BLOOD CELLS (BEAKER) (test 0 /100 WBC 0-0 ygvv=049) NEUTROPHILS RELATIVE PERCENT (BEAKER) (test 55 % bijz=344) LYMPHOCYTES RELATIVE PERCENT (BEAKER) (test 37 % pvlj=402) MONOCYTES RELATIVE PERCENT (BEAKER) (test 6 % telc=313) EOSINOPHILS RELATIVE PERCENT (BEAKER) (test 1 % rmyt=121) BASOPHILS RELATIVE PERCENT (BEAKER) (test 1 % ewao=310) NEUTROPHILS ABSOLUTE COUNT (BEAKER) (test 3.95 K/ L 1.56-6.13 nsfg=167) LYMPHOCYTES ABSOLUTE COUNT (BEAKER) (test 2.69 K/ L 1.18-3.74 qefz=967) MONOCYTES ABSOLUTE COUNT (BEAKER) (test 0.46 K/ L 0.24-0.36 uicx=291) EOSINOPHILS ABSOLUTE COUNT (BEAKER) (test 0.06 K/ L 0.04-0.36 bncs=814) BASOPHILS ABSOLUTE COUNT (BEAKER) (test 0.04 K/ L 0.01-0.08 ckjh=062) IMMATURE GRANULOCYTES-RELATIVE PERCENT (BEAKER) 0 % 0-1 (test cjlb=1048) POCT-GLUCOSE [id number] 02:06:00 Test Item Value Reference Range Comments POC-GLUCOSE METER (BEAKER) 166 mg/dL 70-110 TESTED AT [facility] [address] [facility] (test ruuq=6349) [facility] [id number]
[2019-03-09] MEDS ORDERED: LIDOCAINE 1% MPF 5 ML VIAL ONE (11:13)
--- NOTE | 2019-03-09 11:57 | RAD REPORT ---
EXAM DESCRIPTION: RAD - Hand Left 3 View - 03/09/2019 11:40 am CLINICAL HISTORY: Left hand pain COMPARISON: None. FINDINGS: No acute fracture changes are present. There is no dislocation, periosteal reaction or pat hologic bone process. Underlying osteopenic changes are present. Patient has severe degenerative change involving the PIP joints of the left hand as well as the IP j oint of the thumb. Slightly less pronounced degenerative changes are present in the PIP joints. Promi nent marginal spurring changes involve the second-fourth PIP joints and the second DIP joint. Advance d articular marginal spurring also present at the IP joint of the thumb. No erosive component. No Gul l wing deformity felt to be present. MCP joint space narrowing seen without spurring or erosive component. Patient has advanced degenerative change seen as joint space narrowing, sclerosis and spurring at the trapezial articulation with the first metacarpal and scaphoid. There is some flattening or deformity of the scaphoid articular surface. Radiocarpal joint space narrowing is present. Scapholunate joint space is normal. Triangular fibrocar tilage calcifications are present and there is calcification in the radiocarpal joint space and scaph olunate joint space. No air or foreign body in the soft tissues. There is soft tissue swelling most notable around the sec ond- fourth PIP joints. IMPRESSION: Severe left hand degenerative changes are present as detailed. This appears to be a very advanced but primarily osteoarthritis pattern. No acute or destructive finding.
[2019-03-09] MEDS ORDERED: IBUPROFEN 400 MG TAB ONE (13:46)
[2019-03-09] MEDS ORDERED: IBUPROFEN 200 MG TAB PO ONE (13:46)
--- NOTE | 2019-03-09 14:41 | EDPHYS ---
Physician Documentation [facility] Name: Lucinda Portillo Age: 88 yrs Sex: Female : 1930 Arrival Date: 03/09/2019 Time: 10:48 Bed 7 Private MD: ED Physician Kashif Reed HPI: 03/09 11:12 This 88 yrs old Female presents to ER via Ambulatory with complaints of ps1 Finger swelling. 11:12 patient with hx of osteoarthritis not on medications presenting with 1 day history of ps1 left middle finger swelling at the PIP. No fever. No history of gout. Moderate swelling. Atruamatic. . Historical: - Allergies: 10:57 No Known Allergies; hb - Home Meds: 10:57 aspirin 81 mg Oral chew 1 tab once daily [Active]; atorvastatin Oral [Active]; hb Metformin Oral [Active]; Metoprolol Tartrate Oral [Active]; - PMHx: 10:57 cholesterol; Diabetes - NIDDM; Kidney stones; hb - PSHx: 10:57 Mastectomy, Left; Mastectomy, Right; Doble hip join replecement; hb - Immunization history:: Adult Immunizations up to date. - Social history:: Smoking status: Patient/guardian denies using tobacco. - Ebola Screening: : No symptoms or risks identified at this time. ROS: 15:17 Constitutional: Negative for fever, chills, and weight loss, Eyes: Negative for injury, ps1 pain, redness, and discharge, Cardiovascular: Negative for chest pain, palpitations, and edema, Respiratory: Negative for shortness of breath, cough, wheezing, and pleuritic chest pain, Abdomen/GI: Negative for abdominal pain, nausea, vomiting, diarrhea, and constipation, Skin: Negative for injury, rash, and discoloration, Neuro: Negative for headache, weakness, numbness, tingling, and seizure. 15:17 MS/extremity: Positive for swelling, tenderness, of the PIP of left middle finger and left hand and left middle finger. Exam: 15:17 Constitutional: This is a well developed, well nourished patient who is awake, alert, ps1 and in no acute distress. Head/Face: Normocephalic, atraumatic. Eyes: Pupils equal round and reactive to light, extra-ocular motions intact. Lids and lashes normal. Conjunctiva and sclera are non-icteric and not injected. Chest/axilla: Normal chest wall appearance and motion. Nontender with no deformity. No lesions are appreciated. Cardiovascular: Regular rate and rhythm. No gallops, murmurs, or rubs. Normal PMI, no JVD. No pulse deficits. Respiratory: Lungs have equal breath sounds bilaterally, clear to auscultation and percussion. No rales, rhonchi or wheezes noted. No increased work of breathing, no retractions or nasal flaring. Abdomen/GI: Soft, non-tender, with normal bowel sounds. No distension or tympany. No guarding or rebound. No evidence of tenderness throughout. Neuro: Awake and alert, GCS 15, oriented to person, place, time, and situation. Cranial nerves II-XII grossly intact. Sensory grossly intact. Psych: Awake, alert, with orientation to person, place and time. Behavior, mood, and affect are within normal limits. 15:17 Musculoskeletal/extremity: Extremities: grossly normal except: noted in the PIP of left middle finger and left hand and left middle finger: pain, swelling. Vital Signs: 10:57 BP 126 / 66; Pulse 79; Resp 16; Temp 99; Pulse Ox 97% on R/A; Weight 63.5 kg; Height 5 hb ft. 4 in. (162.56 cm); Pain 8/10; 10:57 Body Mass Index 24.03 (63.50 kg, 162.56 cm) hb MDM: 11:27 Patient medically screened. ps1 15:17 Data reviewed: vital signs, nurses notes, lab test result(s), radiologic studies, and ps1 as a result, I will discharge patient. Counseling: I had a detailed discussion with the patient and/or guardian regarding: the historical points, exam findings, and any diagnostic results supporting the discharge/admit diagnosis, the need for outpatient follow up, a hand specialist, to return to the emergency department if symptoms worsen or persist or if there are any questions or concerns that arise at home. ED course: arthrocentesis of joint performed. No crystals seen. Will dc with meloxicam. Follow up with hand. No joint fluid able to be run by lab. Patient does not want repeat tap. Will have follow up with hand.. 03/09 13:35 Order name: Fluid Crystals ps1 03/09 11:11 Order name: Hand Left 3 View XRAY ps1 03/09 13:35 Order name: Fluid Source ps1 03/09 14:41 Order name: RAD; Complete Time: 14:59 EDMS Administered Medications: 13:20 Drug: Lidocaine (1 %) 5 mg {Note: given to Dr Reed for procedure.} Route: sv Infiltration; 13:48 Drug: Ibuprofen 600 mg Route: PO; sv 14:20 Follow up: Response: No adverse reaction sv Disposition: 03/09/19 14:40 Discharged to Home. Impression: Left hand pain, Joint swelling, Severe osteoarthritis. - Condition is Stable. - Discharge Instructions: Joint Pain, Arthritis. - Prescriptions for meloxicam 7.5 mg Oral tablet - take 1 tablet by ORAL route once daily; 30 tablet. - Medication Reconciliation Form, Thank You Letter, Antibiotic Education, Prescription Opioid Use form. - Follow up: Emergency Department; When: As needed; Reason: Fever > 102 F, Worsening of condition. Follow up: Levi Martell MD; When: 1 - 2 days; Reason: Further diagnostic work-up, Continuance of care. - Problem is chronic. - Symptoms have worsened. Signatures: Dispatcher [employer] EDMS Hui Alex RN RN sv Jillian Proctor RN RN Neha Jackson RN RN jl7 Kashif Reed MD MD ps1 Corrections: (The following items were deleted from the chart) 15:42 14:40 03/09/2019 14:40 Discharged to Home. Impression: Left hand pain; Joint swelling; jl7 Severe osteoarthritis. Condition is Stable. Forms are Medication Reconciliation Form, Thank You Letter, Antibiotic Education, Prescription Opioid Use. Follow up: Emergency Department; When: As needed; Reason: Fever > 102 F, Worsening of condition. Follow up: Levi Martell; When: 1 - 2 days; Reason: Further diagnostic work-up, Continuance of care. Problem is chronic. Symptoms have worsened. ps1
--- NOTE | 2019-03-09 14:41 | ER ---
Nurse's Notes [facility] Name: Lucinda Portillo Age: 88 yrs Sex: Female : 1930 Arrival Date: 03/09/2019 Time: 10:48 Bed 7 Private MD: Diagnosis: Left hand pain;Joint swelling;Severe osteoarthritis Presentation: 03/09 10:56 Presenting complaint: Left middle finger pain and swelling x 2 days. Transition of care: patient was not received from another setting of care. Onset of symptoms was March 08, 2019. Risk Assessment: Do you want to hurt yourself or someone else? Patient reports no desire to harm self or others. Initial Sepsis Screen: Does the patient meet any 2 criteria? No. Patient's initial sepsis screen is negative. Does the patient have a suspected source of infection? No. Patient's initial sepsis screen is negative. Care prior to arrival: None. 10:56 Method Of Arrival: Ambulatory hb 10:56 Acuity: MOO 3 hb Historical: - Allergies: 10:57 No Known Allergies; hb - Home Meds: 10:57 aspirin 81 mg Oral chew 1 tab once daily [Active]; atorvastatin Oral [Active]; hb Metformin Oral [Active]; Metoprolol Tartrate Oral [Active]; - PMHx: 10:57 cholesterol; Diabetes - NIDDM; Kidney stones; hb - PSHx: 10:57 Mastectomy, Left; Mastectomy, Right; Doble hip join replecement; hb - Immunization history:: Adult Immunizations up to date. - Social history:: Smoking status: Patient/guardian denies using tobacco. - Ebola Screening: : No symptoms or risks identified at this time. Screenin:02 Abuse screen: Denies threats or abuse. Denies injuries from another. Nutritional sv screening: No deficits noted. Tuberculosis screening: No symptoms or risk factors identified. Fall Risk None identified. Assessment: 11:10 General: Appears in no apparent distress. uncomfortable, Behavior is calm, cooperative, sv appropriate for age. Pain: Complains of pain in left middle finger Pain currently is 8 out of 10 on a pain scale. Neuro: Level of Consciousness is awake, alert, obeys commands, Oriented to person, place, time, situation, Moves all extremities. Full function. Respiratory: Respiratory effort is even, unlabored, Respiratory pattern is regular, symmetrical. Derm: Skin is pink, warm \T\ dry. Musculoskeletal: Range of motion: limited in PIP of left middle finger Swelling present in left middle finger. 13:10 Reassessment: Patient appears in no apparent distress at this time. No changes from sv previously documented assessment. Patient and/or family updated on plan of care and expected duration. Pain level reassessed. Patient is alert, oriented x 3, equal unlabored respirations, skin warm/dry/pink. 15:40 Reassessment: Patient appears in no apparent distress at this time. No changes from sv previously documented assessment. Patient and/or family updated on plan of care and expected duration. Pain level reassessed. Patient is alert, oriented x 3, equal unlabored respirations, skin warm/dry/pink. Vital Signs: 10:57 BP 126 / 66; Pulse 79; Resp 16; Temp 99; Pulse Ox 97% on R/A; Weight 63.5 kg; Height 5 hb ft. 4 in. (162.56 cm); Pain 8/10; 10:57 Body Mass Index 24.03 (63.50 kg, 162.56 cm) hb ED Course: 10:48 Patient arrived in ED. as 10:57 Triage completed. hb 10:57 Arm band placed on right wrist. hb 11:02 Hui Alex, RN is Primary Nurse. sv 11:02 Patient has correct armband on for positive identification. Bed in low position. Door sv closed. 11:05 Kashif Reed MD is Attending Physician. ps1 11:17 Awaiting for x-ray. sv 13:08 Procedure consent explained by staff, explained by physician, signed by patient. sv 13:20 Assist provider with aspiration of the left hand/finger(s) PIP of left middle finger sv using 18 gauge needle, Lidocaine, fluid removed was bloody, Specimen sent to lab. Set up for procedure. Performed by Kashif Reed MD Dressed with band aid, Neosporin, Patient tolerated poorly. 13:44 Fluid Source Sent. sv 13:44 Fluid Cell Count,Body Sent. sv 13:44 Fluid Crystals Sent. sv 14:38 Levi Martell MD is Referral Physician. ps1 14:57 Hand Left 3 View XRAY Sent. sv 15:42 Patient did not have IV access during this emergency room visit. jl7 Administered Medications: 13:20 Drug: Lidocaine (1 %) 5 mg {Note: given to Dr Reed for procedure.} Route: sv Infiltration; 13:48 Drug: Ibuprofen 600 mg Route: PO; sv 14:20 Follow up: Response: No adverse reaction sv Outcome: 14:40 Discharge ordered by . ps1 15:42 Discharged to home ambulatory, with family. jl7 15:42 Condition: stable 15:42 Discharge instructions given to patient, family, Instructed on discharge instructions, follow up and referral plans. medication usage, Demonstrated understanding of instructions, follow-up care, medications, Prescriptions given X 1. 15:42 Patient left the ED. jl7 Signatures: Hui Alex, RN Rashmi Parham Heather, RN RN hb Leal, Jahala, RN RN jl7 Kashif Reed MD MD ps1
== END 2019-03-09 15:42 | disposition home or self-care (01) ==
LOC: ER 10:45
DX: M19.042 Primary osteoarthritis, left hand (principal); M25.542 Pain in joints of left hand
CPT/HCPCS: 89060; 99284